=== PATIENT | male | born 1930 | race Caucasian/White ===

== ENCOUNTER 2016-06-20 09:13 | Emergency (ER) | payer MEDICARE ==
[~2016-06-20 09:13] MED LIST: ACULAR; AGGRCAP; ALBU83IN; ALLO300T; AMOX500C; ASPI81TA83; ATEN25TA; COSOPT; DRISDOL; INDAPAMIDE; LIDODERM; NEUR300C; NEURONTIN; NITR0.4S; PROV90AE; SIMV80TA; VALS80CA; VICO5TAB; ZANT150T
[2016-06-20] MEDS ORDERED: ONDANSETRON 4MG/2ML VIAL (J2405) As Ordered ONE (09:55)
[2016-06-20] MEDS ORDERED: MORPHINE 2 MG/ML 1ML SYRINGE As Ordered ONE (09:55)
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
--- NOTE | 2016-06-22 12:05 | EDDOCDS ---
Nurse's Notes [facility] Name: Christiano Linares Age: 85 yrs Sex: Male : 1930 Arrival Date: 06/20/2016 Time: 09:13 Bed 17 Private MD: Kody Naylor Diagnosis: Pain in right hip;Trochanteric bursitis, right hip Presentation: 06/20 09:27 Presenting complaint: Patient states: states right lower back pain radiating down right ml6 leg, states chronic pain, denies injury. Adult Sepsis Screening: The patient does not have new or worsening altered mentation. Patient's respiratory rate is less than 22. Systolic blood pressure is greater than 100. Patient has a qSOFA score of 0- Negative Sepsis Screen. Suicide/Homicide risk assessment- the patient denies having any suicidal and/or homicidal ideations and does not present with any other emotional, behavioral or mental health complaints. 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 Transition of care: patient was not received from another setting of care. 09:27 Acuity: HAMLET Level 4 ml6 09:27 Method Of Arrival: Ambulance ml6 Triage Assessment: 09:31 General: Appears in no apparent distress, Behavior is appropriate for age, cooperative. ml6 Pain: Location: right low back and right leg Pain currently is 5 out of 10 on a pain scale. At worst was 10 out of 10 on a pain scale. Pain does not radiate. Quality of pain is described as aching, Pain began 2-3 days ago Is continuous Alleviated by nothing. Aggravated by increased activity. The patient is triaged at the bedside. See Assessment in Nurses Notes section of ED record. Neurological: No deficits noted. Level of Consciousness is awake, alert, Oriented to person, place, time. Cardiovascular: No deficits noted. Capillary refill < 3 seconds is brisk in bilateral fingers toes Heart tones S1 S2 present Edema is absent. Pulses are all present. Respiratory: No deficits noted. GI: No deficits noted. Musculoskeletal: Circulation, motion, and sensation intact Capillary refill < 3 seconds is brisk in bilateral fingers toes Range of motion intact in all extremities. No deformity noted Swelling absent Signs and Symptoms of Compartment Syndrome: no signs of compartment syndrome. Historical: - Allergies: capatral; Ibuprofen (Hives); - Home Meds: 1. atenolol 25 mg oral tab 1 tab once daily (Last dose: 06/20/2016 08:00) 2. gabapentin 600 mg Oral tab 3 times per day (Last dose: 06/20/2016 06:00) 3. hydrocodone-acetaminophen 7.5-325 mg Oral tab every 6 hours (Last dose: 06/20/2016 06:00) 4. indapamide 2.5 mg Oral tab once daily (Last dose: 06/20/2016 06:00) 5. allopurinol 300 mg Oral tab 1 tab once daily (Last dose: 06/20/2016 06:00) 6. ketorolac 0.4 % ophthalmic drop 1 drop 4 times per day (Last dose: 06/20/2016 06:00) 7. dorzolamide 2 % ophthalmic drop 1 drop 3 times per day (Last dose: 06/20/2016 07:00) - PMHx: CVA; Hypercholesterolemia; Hypertension; OK; - PSHx: AAA Repair; Right hip ORIF; CABG; - Social history: Smoking status: Patient states former smoker of tobacco. Patient uses alcohol on a daily basis. No barriers to communication noted, Speaks appropriately for age. - Family history: Not pertinent. - : The pt / caregiver states he / she is not on anticoagulants. Home medication list is obtained from the patient, Unable to Verify Home Med List with the patient / caregiver. - Exposure Risk Screening:: None identified. Screenin:02 Screening information is obtained from the patient. Fall risk: No risks identified. ml6 Assistance ADL's: requires no assistance with activities of daily living. Abuse/DV Screen: The patient / caregiver reports he/she is: not in a situation that causes fear, pain or injury. Nutritional screening: No deficits noted. Advance Directives: Currently, there is no health care proxy. home support is adequate. Assessment: 09:27 General: see triage assessment. ml6 10:30 Reassessment: Patient denies pain at this time. Patient states feeling better. Patient ml6 states symptoms have improved. Patient states symptoms have not improved. 11:01 General: Appears in no apparent distress, comfortable, Behavior is appropriate for age, ml6 cooperative. Pain: Location: right leg and back and right low back Pain currently is 2 out of 10 on a pain scale. Pain does not radiate. Quality of pain is described as aching, Pain began years ago. Is continuous Alleviated by nothing. Aggravated by increased activity. Neurological: No deficits noted. Cardiovascular: No deficits noted. Capillary refill < 3 seconds is brisk in bilateral fingers toes Heart tones S1 S2 present Edema is absent. Pulses are all present. Musculoskeletal: Circulation, motion, and sensation intact Capillary refill < 3 seconds is brisk in bilateral fingers toes Range of motion intact in all extremities. No deformity noted Swelling absent Signs and Symptoms of Compartment Syndrome: no signs of compartment syndrome. Vital Signs: 09:28 BP 150 / 78; Pulse 63; Resp 18; Temp 98.7(TE); Pulse Ox 96% on R/A; Weight 99.79 kg ct3 (R); Height 5 ft. 7 in. (170.18 cm) (R); 10:17 Pain 0/10; ml6 10:31 BP 145 / 62; Pulse 54; Resp 18; Temp 96.3(O); Pulse Ox 91% on R/A; Pain 0/10; dem1 09:28 Body Mass Index 34.46 (99.79 kg, 170.18 cm) ct3 Vitals: 09:28 Log In Time N/A - ambulance arrival. ct3 ED Course: 09:15 Patient visited by Bailey Acosta, Transit Mixer Operator. deg 09:15 Kody Naylor MD is Private Physician. deg 09:15 Patient moved to Waiting deg 09:15 Patient moved to 17 deg 09:16 Kaur Hoang MD is Attending Physician. sd1 09:27 Kaur Hoang MD is Attending Physician. sd1 09:27 Patient visited by Kaur Hoang MD. sd1 09:28 Patient visited by Isabel Kenny PCA. ct3 09:28 Triage Initiated ml6 10:10 Dale Bell PA is PHCP. btw 10:10 Kaur Hoang MD is Attending Physician. btw 10:18 [facility]. btw 10:31 Patient visited by Dianne Ghosh. dem1 10:53 [facility] Payment Agreement was scanned into [employer] and attached to record. jp5 11:02 The patient / caregiver is instructed regarding the plan of care and ED course. ml6 11:02 No IV's were initiated during this patient's visit. No procedures done that require ml6 assistance. 14:34 T-Sheet-- Draft Copy was scanned into [employer] and attached to record. 14:34 PCR was scanned into [employer] and attached to record. gb 06/21 13:13 PCR was scanned into [employer] and attached to record. gb Administered Medications: 06/20 10:02 Drug: morphine 2 mg [morphine 2 mg/mL intravenous cartridge (1 mL)] Route: IVP; Site: ml6 left antecubital; 10:17 Follow up: Pain 0/10 Adult; see v/s ml6 10:02 Drug: Ondansetron 4 mg [ondansetron HCl 2 mg/mL intravenous solution (2 mL)] Route: ml6 IVP; Site: left antecubital; Intake: Order Results: There are currently no results for this order. Outcome: 10:19 Discharge ordered by Provider. btw 11:02 Discharge Assessment: patient administered narcotics - no. The following High Risk ml6 Discharge criteria are identified: None. Discharged to home ambulatory, with family. Condition: improved. Discharge instructions given to patient, Instructed on discharge instructions, follow up and referral plans. medication usage, Demonstrated understanding of instructions, medications, Pt was receptive of discharge instructions/ teaching. Prescriptions given X 1. No special radiology studies were completed. Property :Personal belongings accompany Pt. 11:03 Patient left the ED. ml6 Signatures: Kaur Hoang MD MD sd1 Bailey Acosta, Transit Mixer Operator Unit deg Mary Jo Riley, Reg Reg gb Daron Jones RN RN ml6 Dale Bell PA PA btw Isabel Kenny, PARTS PICKER PARTS PICKER ct3 Dianne Ghosh1 Isabel Vo jp5 Corrections: (The following items were deleted from the chart) 09:32 09:27 Presenting complaint: Patient states: states right lower back pain radiating down ml6 right leg, states chronic pain ml6 Chart Complete MTDD
== END 2016-06-20 11:03 | disposition home or self-care (01) ==
LOC: M ED 09:13
DX: M25.551 Pain in right hip (principal); I10 Essential (primary) hypertension; E78.00 Pure hypercholesterolemia, unspecified; I25.2 Old myocardial infarction; Z86.73 Personal history of transient ischemic attack (TIA), and cerebral infarction without residual deficits; Z95.1 Presence of aortocoronary bypass graft; Z79.899 Other long term (current) drug therapy; Z88.8 Allergy status to other drugs, medicaments and biological substances; Z88.6 Allergy status to analgesic agent
CPT/HCPCS: 96374; 96375; 99283; J2405

== ENCOUNTER → 2016-06-25 | Outpatient (CLI) | payer MEDICARE ==
--- NOTE | 2016-06-25 16:29 | REP ---
RIGHT HIP, COMPLETE: 06/25/2016. Comparison: 05/25/2013 AP pelvis. Clinical history: Hip pain, degenerative disease. There are vascular calcifications about the common femoral artery. Three lag screws in the femoral head from prior ORIF of the femoral neck fracture. These screw threads do not extend beyond the articular surface of either view. The contour of the femoral head is unchanged from that previous study. There is some progression of degenerative change with larger rim osteophyte at the acetabular roof but no joint space narrowing. No new or acute fracture. Pubic rami and symphysis pubis, unchanged. Heavy vascular calcification of the iliac and femoral arteries visible. Impression: 1. Status post ORIF right hip and prior vascular surgery involving the femoral vessels. No acute fracture, hardware defect of those three femoral screws nor other acute finding. Some progressive degenerative change at the acetabular roof. Rim osteophytes there and femoral head larger. Signed by Tomy Dunne MD 06/25/2016 06:01 P
--- NOTE | 2016-06-25 16:30 | REP ---
RIGHT KNEE SERIES, COMPLETE: 06/25/2016: No comparison study. Clinical history: Knee pain, arthritis. Findings: Five views are provided. Heavy vascular calcifications in the femoral, popliteal arteries and branches thereof in the calf. There are clips in the medial aspect of the lower thigh and upper calf from prior vein graft harvest. There is no narrowing of the medial or lateral compartments on the frontal and oblique views spurs in the tibial spines noted. There is no evidence of osteochondral defect or loose body in the medial or lateral compartment. Patellofemoral joint shows slight narrowing of the lateral patellofemoral compartment but no subluxation or dislocation. No definite effusion. Impression: 1. 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 2. No narrowing of the medial or lateral compartments but with slight narrowing of the lateral patellofemoral joint space. 3. Heavy vascular calcifications of the femoral artery through the trifurcation vessels in the upper calf. Signed by Tomy Dunne MD 06/25/2016 06:02 P
== END ==
LOC: M ADAMS 15:12
PROVIDERS: ATTEND Family Medicine
DX: M24.651 Ankylosis, right hip (principal); M17.11 Unilateral primary osteoarthritis, right knee; I70.291 Other atherosclerosis of native arteries of extremities, right leg; Z98.890 Other specified postprocedural states

== ENCOUNTER → 2016-07-10 | Outpatient (CLI) | payer MEDICARE ==
--- NOTE | 2016-07-18 00:31 | ECWPNPC ---
PATIENT NAME: OPAL DANIEL : 1930 GENDER: MALE VISIT DATE: 07/10/2016 DISCHARGE DATE: 07/10/161619 VISIT LOCKED DATE TIME: PHYSICIAN: SHAY VALENZUELA PHYSICIAN PAGER NO: [phone] RESOURCE: SHAY VALENZUELA REASON FOR APPOINTMENT 1. SPINAL STENOSIS HISTORY OF PRESENT ILLNESS NEW PATIENT CONSULT: 85 Y/O MALE WITH LONG HX OF LOW BACK PAIN.HAD ER EVALUATION DUE TO SEVERE RIGHT LEG PAIN ONE WEEK AGO.STARTED ON ORAL STEROIDS ON 06-20-16 AT ER.PAIN HAS GOTTEN BETTER.RATING PAIN VAS 7/10.DESCRIBES PAIN CONSTANT BURNING AND SHARP PAIN.PAIN IS AGGREVATED BY PUTTING WEIGHT ON RIGHT LEG OR PROLONGED SITTING. RELIEVED SOMEWHAT WITH MEDICATION.DENIES BOWEL OR BLADDER INCONTINENCE.DENIES RECENT FEVER OR WEIGHT LOSS. WHEN DID YOUR PAIN FIRST START? . BRIEFLY DESCRIBE HOW YOUR PAIN STARTED? . HOW DOES YOUR PAIN CHANGE WITH TIME? . DOES YOUR PAIN AWAKEN YOU FROM SLEEP? . HOW MANY HOURS OF SLEEP DO YOU NORMALLY GET? . ANY DIAGNOSTIC TESTING? . FACILITY WHERE TESTS WERE DONE? ____. PAIN TREATMENT TREATMENT YES CANCER HAVE YOU EVER HAD ANY TYPE OF CANCER?NO NO. PAIN SCREENING: PATIENT HAS A COMPLAINT OF ACUTE OR CHRONIC PAIN YES FALL RISK SCREENING: SCREENING :NO FALLS IN THE PAST YEAR ARAMBULA INVENTORY: QUESTIONNAIRE ASSESSEDTBD SCORE VALUE CALCULATED TBD CURRENT MEDICATIONS TAKING NITROSTAT 0.4 MG TABLET SUBLINGUAL 1 TABLET UNDER THE TONGUE SUBLINGUAL NEEDED FOR CHEST PAIN TAKING ASPIR-81 81 MG TABLET DELAYED RELEASE 1 TABLET ORALLY ONCE A DAY TAKING ATENOLOL 25 MG TABLET 1 TABLET ORALLY TWICE A DAY TAKING ALLOPURINOL 300 MG TABLET 1 TABLET ORALLY ONCE A DAY TAKING ATORVASTATIN CALCIUM 80 MG TABLET 1 TABLET ORALLY ONCE A DAY TAKING GABAPENTIN 600 MG TABLET 2 TABLET ORALLY THREE TIMES A DAY TAKING INDAPAMIDE 2.5 MG TABLET 1 TABLET IN THE MORNING ORALLY ONCE A DAY TAKING CLOPIDOGREL BISULFATE 75 MG TABLET 1 TABLET ORALLY ONCE A DAY TAKING HYDROCODONE-ACETAMINOPHEN 7.5-325 MG TABLET 1 TABLET ORALLY/MDD # 4 EVERY 6 HRS NEEDED TAKING KETOROLAC TROMETHAMINE 0.4 % SOLUTION 1 DROP INTO AFFECTED EYE OPHTHALMIC 3 TIMES A DAY TAKING DORZOLAMIDE HCL 2 % SOLUTION 1 DROP INTO AFFECTED EYE OPHTHALMIC DAILY NOT-TAKING ATROVENT 0.06 % SOLUTION 2 DROPS IN EACH NOSTRIL NEEDED NASALLY TID PRN NOT-TAKING AMBIEN 10 MG TABLET 1/2- 1 TABLET ORALLY AT BEDTIME NEEDED, MDD:1 NOT-TAKING VITAMIN D3 2000 UNIT CAPSULE 1 CAPSULE ORALLY DAILY MEDICATION LIST REVIEWED AND RECONCILED WITH THE PATIENT PAST MEDICAL HISTORY HYPERCHOLESTEROLEMIA 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; REFERRED TO PAIN CLINIC/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/POSTERIOR MT 10/24 WITH SUBSEQUENT CABG X4 AAA--S/P EVAR 2011 AT [facility] HYPERTENSION GOUT 06/30, 11/30, 03/02 IMPAIRED FASTING GLUCOSE OBSTRUCTIVE SLEEP APNEA (DID NOT TOLERATE CPAP) BPH STATUS POST TURP ALLERGIC RHINITIS GYNECOMASTIA WITH BIOPSY 12/30 CVA SEPTEMBER 2008 WITH RIGHT FACIAL WEAKNESS MILD AORTIC STENOSIS ECHO 07/2009 EF 60 - 65%; 02/04: NO CHANGE; 04/09 [facility]-- NO CHANGE ADENOMATOUS COLON POLYPS 2001,2002,2006, 2010 ARF IN [place] 08/04--DUE TO VALSARTAN AND DEHYDRATION NST 02/04--NL PERFUSION, EF 66% VIT D DEFIC, RECURRED 2014 ALLERGIES LYRICA: FELT FUNNY DID NOT WORK VALSARTAN/ARBS: ARF: SIDE EFFECTS CAPOTEN: ANGIOEDEMA: SIDE EFFECTS CIPRO: ANAPHYLAXIS: ALLERGY COLCHICINE: DIARRHEA: SIDE EFFECTS KEFLEX: DIARRHEA, FELT REALLY ILL: SIDE EFFECTS MOTRIN: ANGIOEDEMA: SIDE EFFECTS SURGICAL HISTORY OPEN HEART QUADRUPLE BYPASS 10/2000 RIGHT HIP FRACTURE WITH SCREWS 2008 ABDOMINAL ANEURYSM REPAIRED 2009 CATARACTS IN BOTH EYES FAMILY HISTORY 4 SON(S) , 1 DAUGHTER(S) . 3 SONS HAVE CARDIAC ISSUES. SOCIAL HISTORY GENERAL: PAIN CLINIC PFS, CLERGY, PUBLIC HEALTH REFERRALS PFS REFERRAL NEEDED?NO CLERGY REFERRAL NEEDED?NO PUBLIC HEALTH REFERRAL NEEDED?NO WAS THE PROVIDER NOTIFIED OF ANY PERTINENT INFO?NO PSYCHOLOGICAL HX TREATMENTNO ALCOHOL OR DRUG TREATMENTNO PATIENT: ____. ADVANCED DIRECTIVES HEALTH CARE PROXY?NO POWER OF RIG BUILDER HELPER?NO SCREENING/ASSESSMENT TOOL NUTRITION ASSESSEDYES ARE YOU ON ANY SPECIAL DIET?NO ANY SIGNIFICANT CHANGES RELATED TO EATING, WEIGHT GAIN/LOSS, OR BOWEL HABITS?NO IF YES, IS YOUR PRIMARY CARE PROVIDER AWARE OF THIS?NO SPECIAL NEEDS LEVEL OF CARE? SELF , GLASSES: NO , CONTACTS: NO , HEARING AIDS: NO , DENTURES: NO , WALKER: NO , CANE: NO , WHEELCHAIR: NO , REFERRALS NEEDED: NO . TOBACCO USE ARE YOU A:FORMER SMOKER HOW LONG HAS IT BEEN SINCE YOU LAST SMOKED?> 10 YEARS CAFFEINE CAFFEINE USE?YES HOW OFTEN AND HOW MUCH? 3 CUPS COFFEE/DAY RECREATIONAL DRUG USE DRUG USE?NO PATIENT DENIES ABUSE OR MISSUSED OF ANY MEDICATION. PATIENT DENIES USE OF ANY ILLEGAL SUBSTANCE INCLUDING MARIJUANA OR COCAINE. REVIEW OF SYSTEMS CONSTITUTIONAL: ANY CHANGE IN YOUR MEDICAL CONDITION? NO . RECENT ILLNESS DENIES . CHILLS NO . FEVER NO . WEIGHT LOSS DENIES . INFECTION: DO YOU HAVE NEW INFECTIONS? NO . DO YOU HAVE HISTORY OF MRSA? NO . MUSCULOSKELETAL: ANY NEW PATTERNS OF PAIN OR NUMBNESS? NO . SYTEMIC LUPUS NO . GASTROENTEROLOGY: ANY NEW CHANGE IN BOWEL CONTROL? NO . BARRETTS ESOPHAGUS NO . CIRRHOSIS NO . HEPATITIS NO . LIVER FAILURE NO . ACID REFLUX NO . UNEXPLAINED WEIGHT LOSS NO . GENITOURINARY: ANY NEW CHANGE IN BLADDER CONTROL? NO . IS THERE A CHANCE YOU COULD BE ? NO . HEMATOLOGY/LYMPH: DO YOU TAKE ANY BLOOD THINNERS? (FOR EXAMPLE- COUMADIN, PLAVIX, AGGRENOX, PLATEL, PRADAXA, OR XARELTO) YES, PLAVIX . WHEN WAS YOUR LAST DOSE? DATE: 07/10/16 TIME:0900 . LOW PLATELET COUNT NO . SICKLE CELL DISEASE NO . VON WILLIEBRANDS NO . FACTOR V LEIDEN NO . THALLASEMIA NO . ANEMIA NO . EASY BRUISING NO . NEUROLOGY: HAVE YOU FALLEN IN THE PAST 6 MONTHS? NO . ANY NEW EXTREMITY NUMBNESS OR WEAKNESS? NO . HEAD INJURY NO . DEMENTIA NO . CEREBRAL PALSY NO . MULTIPLE SCLEROSIS NO . DIZZINESS NO . HEADACHE NO . STROKES NO . VERTIGO NO . CARDIOLOGY: DO YOU HAVE A PACEMAKER OR DEFIBRILLATOR? NO . ANGINA NO . HEART ATTACK YES . HEART SURGERY YES, BYPASS GRAFTS . CONGESTIVE HEART FAILURE/FLUID OVERLOAD YES . CHEST PAIN NO, DENIES . HIGH BLOOD PRESSURE ON MEDICATION(S) . IRREGULAR HEART BEAT NO . SHORTNESS OF BREATH DENIES . RESPIRATORY: HAVE YOU BEEN SICK IN THE PAST WEEK? NO . FEVER NO . FLU LIKE SYMPTOMS? NO . CPAP NO . BYPAP NO . ASTHMA NO . EMPHYSEMA NO . CHRONIC LUNG DISEASES NO . SHORTNESS OF BREATH ON EXERTION NO . DO YOU USE ANY TYPE OF TOBACCO (SMOKE, SMOKELESS, CHEW)? NO . COUGH NO, DENIES . SHORTNESS OF BREATH DENIES . SNORING NO . INTEGUMENTARY: DO YOU HAVE ANY RASHES OR OPEN SORES? NO . ALLERGIC/IMMUNO: ARE YOU ALLERGIC TO SHELLFISH OR IV DYE? NO . ANY NEW ALLERGIES? NO . PSYCHIATRIC: DO YOU HAVE THOUGHTS OF HURTING YOURSELF OR SOMEONE ELSE? NO . ARE YOU ABUSED, NEGLECTED, OR IN AN UNSAFE ENVIRONMENT? NO . ENDOCRINOLOGY: ARE YOU DIABETIC? NO . THYROID DISORDER NO . OTHER: DO YOU NEED ANY PRESCRIPTIONS? NO . IF YES, PLEASE LIST: ____ . ANY NEW PROBLEMS WITH YOUR MEDICATIONS? NO . WHEN DID YOU LAST EAT? ____ . WHEN DID YOU LAST DRINK? ____ . WHAT DID YOU LAST DRINK? ____ . NAME OF PERSON DRIVING YOU HOME? ____ . DO YOU HAVE ANY OTHER QUESTIONS OR CONCERNS NO . REVIEWED BY: PROVIDER: SHAY STEWARD . VITAL SIGNS WT 215 LBS, HT 67 IN, BMI 33.67 INDEX, BP 159/75 MM HG, HR 70 /MIN, RR 16 /MIN, TEMP 97.6 F, OXYGEN SAT % 93%, NA INITIALS SC 15:19, REVIEWED BY: CS. EXAMINATION GENERAL EXAMINATION: LUNGS:LUNG SOUNDS ARE CLEAR. HEART:HEART RATE REGULAR. MUSCULOSKELETAL:*, MUSCLE STRENGTH TESTING 5/5 LEFT,3/5 RIGHT LOWER EXTREMITIES., PALPATION: POSITIVE FOR PAIN OVER L/S SPINE. POSITIVE FOR PAIN OVER L/S PARASPINALS.SPECIFIC POINT TENDERNESS OVER RIGHT SIJ.. DIAGNOSTIC:MRI L/S [id number] REVIEWED.. ASSESSMENTS SACROILIAC JOINT PAIN - M53.3 (PRIMARY) TREATMENT SACROILIAC JOINT PAIN INJECTION ANESTHETIC SACROILIAC JOINTSHAY VALENZUELA 07/10/2016 4:11:24 PM > RIGHT SIJ PROCEDURE CODES FA211 ESTABILISHED PATIENT THE [facility] FACILITY CHARGE G8730 PAIN ASSESS POS TOOL F/U PLAN DOC G8427 DOC MEDS VERIFIED W/PT OR RE DISPOSITION & COMMUNICATION FOLLOW UP 2WK POST PROCEDURE (REASON: SEND STOP PLAVIX FORM TO DR GALVAN) ELECTRONICALLY SIGNED BY BIN SHARP ON 07/17/2016 AT 07:31 PM EST DISCLAIMER : THIS IS A VISIT SUMMARY EXTRACTED FROM THE [employer] Video CHART. IT IS NOT A COPY OF THE [employer] PROGRESS NOTE. BERTRAND
== END ==
LOC: M PAIN 15:20
PROVIDERS: ATTEND Nurse Practitioner Family
DX: G89.29 Other chronic pain (principal); M53.3 Sacrococcygeal disorders, not elsewhere classified; I12.9 Hypertensive chronic kidney disease with stage 1 through stage 4 chronic kidney disease, or unspecified chronic kidney disease; N18.3 Chronic kidney disease, stage 3 (moderate); D63.1 Anemia in chronic kidney disease; E78.2 Mixed hyperlipidemia; I25.10 Atherosclerotic heart disease of native coronary artery without angina pectoris; I25.2 Old myocardial infarction; I35.0 Nonrheumatic aortic (valve) stenosis; E55.9 Vitamin D deficiency, unspecified; M10.9 Gout, unspecified; G47.33 Obstructive sleep apnea (adult) (pediatric); M51.37 Other intervertebral disc degeneration, lumbosacral region; M48.07 Spinal stenosis, lumbosacral region; M19.90 Unspecified osteoarthritis, unspecified site; M24.651 Ankylosis, right hip; Z88.8 Allergy status to other drugs, medicaments and biological substances; Z88.6 Allergy status to analgesic agent; Z79.01 Long term (current) use of anticoagulants; Z79.82 Long term (current) use of aspirin; Z79.891 Long term (current) use of opiate analgesic; Z79.899 Other long term (current) drug therapy; Z87.891 Personal history of nicotine dependence; Z95.1 Presence of aortocoronary bypass graft; Z95.828 Presence of other vascular implants and grafts

== ENCOUNTER → 2016-08-13 | Outpatient (CLI) | payer MEDICARE ==
[~2016-08-13] MED LIST changes: +BUPIVACAINE HCL 0.25% 30 ML VIAL As Ordered ONE; +DORZ2OPD; +GABA600T PO; +ISOVUE-M 300 61% 15ML VIAL (Q9967) As Ordered ONE; +KETOROLAC OU; +LIDOCAINE 1% SDV INJ 30 ML VIAL As Ordered ONE; +TRIAMCINOLONE ACETONIDE SUSP 40 MG/ML VIAL (J3301) As Ordered ONE
--- NOTE | 2016-08-13 17:06 | REP ---
FLUOROSCOPIC GUIDANCE: The images were reviewed with Dr. De La Paz. The patient has a history of low back pain. The portable C-Arm was provided in the OR for Dr. Clancy for fluoroscopic guidance. One intraoperative fluoroscopic spot film was obtained for needle placement verification for right sacroiliac joint injection. The film is on the PACs system and is available for review. 15 seconds of fluoroscopy time was utilized for this procedure. Reviewed by SIMONE Velez 08/14/2016 04:17 PEdited and Signed by Jimmie De La Paz MD 08/15/2016 12:25 P
--- NOTE | 2016-08-15 00:11 | ECWPNPC ---
PATIENT NAME: OPAL DANIEL : 1930 GENDER: MALE VISIT DATE: 08/13/2016 DISCHARGE DATE: 08/13/16 1350 VISIT LOCKED DATE TIME: PHYSICIAN: ELISA MARTINEZ PHYSICIAN PAGER NO: [phone] RESOURCE: ELISA MARTINEZ REASON FOR APPOINTMENT 1. SIJ (RIGHT) HISTORY OF PRESENT ILLNESS HISTORY OF PRESENT ILLNESS: PAIN THE PATIENT DESCRIBES THE PAIN... FALL RISK SCREENING: SCREENING :NO FALLS IN THE PAST YEAR CURRENT MEDICATIONS TAKING NITROSTAT 0.4 MG TABLET SUBLINGUAL 1 TABLET UNDER THE TONGUE SUBLINGUAL NEEDED FOR CHEST PAIN, NOTES: > 4 YEARS AGO TAKING ASPIR-81 81 MG TABLET DELAYED RELEASE 1 TABLET ORALLY ONCE A DAY, NOTES: 06/06/16 08 TAKING ATENOLOL 25 MG TABLET 1 TABLET ORALLY TWICE A DAY, NOTES: 08/13/16 08 TAKING ALLOPURINOL 300 MG TABLET 1 TABLET ORALLY ONCE A DAY, NOTES: 08/13/16 08 TAKING ATORVASTATIN CALCIUM 80 MG TABLET 1 TABLET ORALLY ONCE A DAY, NOTES: 08/12/16 2200 TAKING GABAPENTIN 600 MG TABLET 2 TABLET ORALLY THREE TIMES A DAY, NOTES: 08/13/16 08 TAKING INDAPAMIDE 2.5 MG TABLET 1 TABLET IN THE MORNING ORALLY ONCE A DAY, NOTES: 08/13/16 08 TAKING CLOPIDOGREL BISULFATE 75 MG TABLET 1 TABLET ORALLY ONCE A DAY, NOTES: 08/04/16 08 TAKING KETOROLAC TROMETHAMINE 0.4 % SOLUTION 1 DROP INTO AFFECTED EYE OPHTHALMIC 3 TIMES A DAY, NOTES: 08/13/16 08 TAKING DORZOLAMIDE HCL 2 % SOLUTION 1 DROP INTO AFFECTED EYE OPHTHALMIC DAILY, NOTES: 08/13/16 08 TAKING HYDROCODONE-ACETAMINOPHEN 7.5-325 MG TABLET 1 TABLET ORALLY/MDD # 4 EVERY 6 HRS NEEDED, NOTES: 08/13/16 1000 NOT-TAKING ATROVENT 0.06 % SOLUTION 2 DROPS IN EACH NOSTRIL NEEDED NASALLY TID PRN NOT-TAKING AMBIEN 10 MG TABLET 1/2- 1 TABLET ORALLY AT BEDTIME NEEDED, MDD:1 NOT-TAKING VITAMIN D3 2000 UNIT CAPSULE 1 CAPSULE ORALLY DAILY MEDICATION LIST REVIEWED AND RECONCILED WITH THE PATIENT PAST MEDICAL HISTORY HYPERCHOLESTEROLEMIA 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 HYPERTENSION GOUT 06/30, 11/30, 03/02 IMPAIRED FASTING GLUCOSE OBSTRUCTIVE SLEEP APNEA (DID NOT TOLERATE CPAP) BPH STATUS POST TURP ALLERGIC RHINITIS GYNECOMASTIA WITH BIOPSY 12/30 CVA SEPTEMBER 2008 WITH RIGHT FACIAL WEAKNESS MILD AORTIC STENOSIS ECHO 07/2009 EF 60 - 65%; 02/04: NO CHANGE; 04/09 [facility]-- NO CHANGE ADENOMATOUS COLON POLYPS 2001,2002,2006, 2010 ARF IN [place] 08/04--DUE TO VALSARTAN AND DEHYDRATION NST 02/04--NL PERFUSION, EF 66% VIT D DEFIC, RECURRED 2014 ALLERGIES LYRICA: FELT FUNNY DID NOT WORK VALSARTAN/ARBS: ARF: SIDE EFFECTS CAPOTEN: ANGIOEDEMA: SIDE EFFECTS CIPRO: ANAPHYLAXIS: ALLERGY COLCHICINE: DIARRHEA: SIDE EFFECTS KEFLEX: DIARRHEA, FELT REALLY ILL: SIDE EFFECTS MOTRIN: ANGIOEDEMA: SIDE EFFECTS SOCIAL HISTORY GENERAL: TOBACCO USE ARE YOU A:NONSMOKER LEARNING BARRIERS / SPECIAL NEEDS ORIENTED TO PLAN OF CARE: PATIENT, PAIN MANAGEMENT PATIENT, ORIENTED TO PLAN OF CARE: PATIENT, PAIN MANAGEMENT PATIENT. NEW PATIENT PAIN DIARY TODAY'S VISITNOTES FROM 0-10, WHAT LEVEL IS YOUR PAIN TODAY?0 PAIN CLINIC PFS, CLERGY, PUBLIC HEALTH REFERRALS PFS REFERRAL NEEDED?NO CLERGY REFERRAL NEEDED?NO PUBLIC HEALTH REFERRAL NEEDED?NO WAS THE PROVIDER NOTIFIED OF ANY PERTINENT INFO?NO PFS REFERRAL NEEDED?NO CLERGY REFERRAL NEEDED?NO PUBLIC HEALTH REFERRAL NEEDED?NO WAS THE PROVIDER NOTIFIED OF ANY PERTINENT INFO?NO REVIEW OF SYSTEMS CONSTITUTIONAL: ANY CHANGE IN YOUR MEDICAL CONDITION? NO . CHILLS NO . FEVER NO . INFECTION: DO YOU HAVE NEW INFECTIONS? NO . DO YOU HAVE HISTORY OF MRSA? NO . MUSCULOSKELETAL: ANY NEW PATTERNS OF PAIN OR NUMBNESS? NO . GASTROENTEROLOGY: ANY NEW CHANGE IN BOWEL CONTROL? NO . GENITOURINARY: ANY NEW CHANGE IN BLADDER CONTROL? NO . IS THERE A CHANCE YOU COULD BE ? NO . HEMATOLOGY/LYMPH: DO YOU TAKE ANY BLOOD THINNERS? (FOR EXAMPLE- COUMADIN, PLAVIX, AGGRENOX, PLATEL, PRADAXA, OR XARELTO) YES, PLAVIX . WHEN WAS YOUR LAST DOSE? DATE: TIME: 08/04/16 AM . NEUROLOGY: HAVE YOU FALLEN IN THE PAST 6 MONTHS? NO . ANY NEW EXTREMITY NUMBNESS OR WEAKNESS? NO . CARDIOLOGY: DO YOU HAVE A PACEMAKER OR DEFIBRILLATOR? NO . RESPIRATORY: HAVE YOU BEEN SICK IN THE PAST WEEK? NO . FEVER NO . FLU LIKE SYMPTOMS? NO . COUGH NO . INTEGUMENTARY: DO YOU HAVE ANY RASHES OR OPEN SORES? NO . ALLERGIC/IMMUNO: ARE YOU ALLERGIC TO SHELLFISH OR IV DYE? NO . ANY NEW ALLERGIES? NO . PSYCHIATRIC: DO YOU HAVE THOUGHTS OF HURTING YOURSELF OR SOMEONE ELSE? NO . ARE YOU ABUSED, NEGLECTED, OR IN AN UNSAFE ENVIRONMENT? NO . ENDOCRINOLOGY: ARE YOU DIABETIC? NO . OTHER: DO YOU NEED ANY PRESCRIPTIONS? NO . IF YES, PLEASE LIST: ____ . ANY NEW PROBLEMS WITH YOUR MEDICATIONS? NO . WHEN DID YOU LAST EAT? 08-13-16 0630 . WHEN DID YOU LAST DRINK? 08-13-16 1000 . WHAT DID YOU LAST DRINK? ORANGE JUICE . NAME OF PERSON DRIVING YOU HOME? KAY DANIEL . DO YOU HAVE ANY OTHER QUESTIONS OR CONCERNS NO . REVIEWED BY: PROVIDER: . VITAL SIGNS WT 215 LBS, HT 67 IN, BMI 33.67 INDEX, BP 170/80 MM HG, HR 68 /MIN, RR 18 /MIN, TEMP 97.2 F, OXYGEN SAT % 93, SAFE IN ENV? (Y/N) YES, NA INITIALS HS, REVIEWED BY: JUSTIN. ASSESSMENTS SACROILIITIS, NOT ELSEWHERE CLASSIFIED - M46.1 (PRIMARY) PROCEDURES PN SI PRE PROCEDURE DIAGNOSIS SACROILIITIS, SACROILIAC JOINT DYSFUNCTION POST PROCEDURE DIAGNOSIS SACROILIITIS, SACROILIAC JOINT DYSFUNCTION PROCEDURE RIGHT SACROILIAC JOINT BLOCK SURGEON DR. ELISA MARTINEZ ACCOUNTING REPRESENTATIVE NONE ANESTHESIA LOCAL PRE PROCEDURE NOTE PATIENT WITH HISTORY OF CHRONIC LOW BACK PAIN. I EVALUATED THE PATIENT AND REVIEWED THE CHART. I WENT OVER THE RISKS, ALTERNATIVES, AND BENEFITS ASSOCIATED WITH THIS PROCEDURE. THE PATIENT WOULD LIKE TO PROCEED AND GAVE CONSENT TO PERFORM THE PROCEDURE. THE PATIENT DENIES UNEXPLAINABLE WEIGHT LOSS, FEVER, CHILLS, OR NEW CHANGES IN URINARY OR BOWEL CONTROL DESCRIPTION OF PROCEDURE THE PATIENT WAS BROUGHT TO THE PROCEDURE ROOM AND PLACED IN THE PRONE POSITION. THE LUMBOSACRAL AREA WAS CLEANED WITH CHLORAPREP SOLUTION AND DRAPED ASEPTICALLY. THE PROCEDURE WAS DONE UNDER STERILE CONDITIONS. I CHECKED LATERALITY AND THE LEVEL WHERE THE PROCEDURE WAS GOING TO BE PERFORMED WITH THE PATIENT AND THE SUPPORTING STAFF AT THE MOMENT OF THE TIME OUT IN THE PROCEDURE ROOM. UNDER FLUOROSCOPIC GUIDANCE, TARGET POINT WAS SELECTED AT THE LOWER BORDER OF THE RIGHT SACROILIAC JOINT. TARGET POINT WAS SELECTED AFTER MEDIAL ROTATION AND TILT OF THE MAGNIFIER OF THE C-ARM. LIDOCAINE WAS USED TO NUMB THE SKIN AND SUBCUTANEOUS TISSUE BELOW IT. A SPINAL NEEDLE, 22-GAUGE, WAS ADVANCED UNDER FLUOROSCOPIC GUIDANCE AND FOLLOWING PATIENT FEEDBACK UNTIL THE TARGET AREA WAS TOUCHED. THE POSITION OF THE NEEDLE WAS VERIFIED WITH AP AND LATERAL VIEWS. AFTER PROPER POSITION OF THE NEEDLE WAS ACHIEVED, ISOVUE M DYE 30%, 0.25 ML, WAS INJECTED SHOWING SPREAD OF THE DYE. THEN, A SOLUTION OF 20 MG OF KENALOG WAS INJECTED IN RIGHT JOINT WITH 3 ML OF BUPIVACAINE 0.125%. THERE WAS NO EVIDENCE OF BLOOD, PARESTHESIA OR CEREBROSPINAL FLUID DURING THE PROCEDURE. THE PATIENT WAS SENT TO THE RECOVERY ROOM. THE PATIENT WAS MOVING THE EXTREMITIES AND DOING WELL. THERE WAS NO COMPLICATION DURING THE PROCEDURE. FLUOROSCOPY TIME WAS 15 SECONDS POST PROCEDURE NOTE THE PATIENT WILL BE SEEN IN A FOLLOW UP IN THE NEXT FEW WEEKS. INSTRUCTIONS WERE GIVEN, QUESTIONS WERE ANSWERED, AND THE PATIENT EXPRESSED UNDERSTANDING AND AGREED WITH THE PLAN. I, URI MEHTA, DOCUMENTED THE ABOVE INFORMATION ACTING A SCRIBE FOR DR. MARTINEZ. I HAVE REVIEWED THE ABOVE DOCUMENT, WRITTEN BY URI ARANGO AND I VERIFY THAT IT IS ACCURATE. DIAGNOSTIC IM[facility] FLUORO GUIDANCE (PAIN)[id number] PROCEDURE CODES 47268 INJECT SACROILIAC JOINT 6045F RADXPS IN END [id number] PXD DISPOSITION & COMMUNICATION FOLLOW UP 3 WEEKS ELECTRONICALLY SIGNED BY ELISA MARTINEZ MD ON 08/14/2016 AT 08:37 PM EDT DISCLAIMER : THIS IS A VISIT SUMMARY EXTRACTED FROM THE [facility] CHART. IT IS NOT A COPY OF THE [facility] PROGRESS NOTE. MTDD
== END ==
LOC: M PAIN 11:40
PROVIDERS: ATTEND Anesthesiology
DX: G89.29 Other chronic pain (principal); M46.1 Sacroiliitis, not elsewhere classified; M54.5 Low back pain; Z79.82 Long term (current) use of aspirin; Z79.891 Long term (current) use of opiate analgesic; Z79.899 Other long term (current) drug therapy; I11.9 Hypertensive heart disease without heart failure; I25.10 Atherosclerotic heart disease of native coronary artery without angina pectoris; E78.2 Mixed hyperlipidemia; E55.9 Vitamin D deficiency, unspecified; M79.2 Neuralgia and neuritis, unspecified; Z95.828 Presence of other vascular implants and grafts; M53.3 Sacrococcygeal disorders, not elsewhere classified
CPT/HCPCS: G0260; J3301; Q9967

== ENCOUNTER 2016-08-21 17:34 | Emergency (ER) | payer MEDICARE ==
[~2016-08-21] VITALS: Ht 170.2 cm; Wt 97.5 kg
[~2016-08-21 17:34] MED LIST changes: -BUPIVACAINE HCL 0.25% 30 ML VIAL As Ordered ONE; -DORZ2OPD; -GABA600T PO; -ISOVUE-M 300 61% 15ML VIAL (Q9967) As Ordered ONE; -KETOROLAC OU; -LIDOCAINE 1% SDV INJ 30 ML VIAL As Ordered ONE; -TRIAMCINOLONE ACETONIDE SUSP 40 MG/ML VIAL (J3301) As Ordered ONE
[2016-08-21] MEDS ORDERED: GABA600T PO (18:29)
[2016-08-21] MEDS ORDERED: KETOROLAC OU (18:29)
[2016-08-21] MEDS ORDERED: DORZ2OPD (18:31)
[2016-08-21] MEDS ORDERED: traMADol 50 MG TAB PO ONE (20:00)
--- NOTE | 2016-08-21 20:40 | REPUSA ---
CLINICAL HISTORY: Testicular pain. TECHNIQUE: Realtime sonographic images were obtained in multiple projections. COMMENTS: Both testicles are of normal size and shape and are of heterogeneous echo texture. The right testicle measures 3.3 x 2.3 x 2.53 cm. The right epididymis measures 5.8 cc. The left testicle measures 4.1 x 2.7 x 3.4 cm. The left epididymis measures 13.7 mm The left testicle shows diffusely cystic tissue along the mediastinum testis. No torsion. Bilateral hydroceles. The right RI is 0.3, PSV 2.0 and EDV 1.4 cm/s. The left RI is 0.67, PSV 2.7 and EDV 0.9 cm/s. IMPRESSION: Bilateral heterogeneous echotexture. This may represent prior trauma or infection. Diffuse cystic tissue around left testicle of doubtful clinical significance. Bilateral hydroceles. Thank you for your kind referral of this patient. We appreciate the opportunity to participate in thi s patient's care.
[2016-08-21 20:57] VITALS: BP 146/74
== END 2016-08-21 20:58 | disposition left against medical advice (07) ==
LOC: M ED 20:57
DX: S30.21XA Contusion of penis, initial encounter (principal); W23.1XXA Caught, crushed, jammed, or pinched between stationary objects, initial encounter; Y92.89 Other specified places as the place of occurrence of the external cause; Y93.89 Activity, other specified; Y99.9 Unspecified external cause status

== ENCOUNTER → 2016-08-26 | Outpatient (REF) | payer MEDICARE ==
[~2016-08-26] MED LIST changes: +DORZ2OPD; +GABA600T PO; +KETOROLAC OU
== END ==
LOC: M SFHCPLAZ 15:07
PROVIDERS: ATTEND Physician Assistant
DX: N50.819 Testicular pain, unspecified (principal)

== ENCOUNTER → 2016-08-28 | Outpatient (CLI) | payer MEDICARE ==
--- NOTE | 2016-08-29 00:26 | ECWPNPC ---
PATIENT NAME: OPAL DANIEL : 1930 GENDER: MALE VISIT DATE: 08/28/2016 DISCHARGE DATE: 08/28/16 0000 VISIT LOCKED DATE TIME: PHYSICIAN: SHAY VALENZUELA PHYSICIAN PAGER NO: [phone] RESOURCE: SHAY VALENZUELA REASON FOR APPOINTMENT 1. POST PROCEDURE-SIJ HISTORY OF PRESENT ILLNESS HISTORY OF PRESENT ILLNESS: HERE FOR POST PROCEDURE F/U.HAD RIGHT SIJ 08-13-16.REPORTS TWO DAYS IMPROVEMENT IN PAIN POST PROCEDURE.RATING PAIN VAS 8/10.DESCRIBES PAIN CONSTANT ACHING AND BURNING ACROSS LOW BACK.REPORTS NO IMPROVEMENT WITH CURRENT PAIN MEDICATION TO INCLUDE GABAPENTIN AND HYDROCODONE THAT HE RECIEVES FROM PRIMARY CARE. PAIN THE PATIENT DESCRIBES THE PAIN... FALL RISK SCREENING: SCREENING :NO FALLS IN THE PAST YEAR CURRENT MEDICATIONS TAKING NITROSTAT 0.4 MG TABLET SUBLINGUAL 1 TABLET UNDER THE TONGUE SUBLINGUAL NEEDED FOR CHEST PAIN, NOTES: > 4 YEARS AGO TAKING ASPIR-81 81 MG TABLET DELAYED RELEASE 1 TABLET ORALLY ONCE A DAY, NOTES: 06/06/16 0800 TAKING ATENOLOL 25 MG TABLET 1 TABLET ORALLY TWICE A DAY, NOTES: 08/13/16 0800 TAKING ALLOPURINOL 300 MG TABLET 1 TABLET ORALLY ONCE A DAY, NOTES: 08/13/16 0800 TAKING ATORVASTATIN CALCIUM 80 MG TABLET 1 TABLET ORALLY ONCE A DAY, NOTES: 08/12/16 2200 TAKING INDAPAMIDE 2.5 MG TABLET 1 TABLET IN THE MORNING ORALLY ONCE A DAY, NOTES: 08/13/16 08 TAKING CLOPIDOGREL BISULFATE 75 MG TABLET 1 TABLET ORALLY ONCE A DAY, NOTES: 08/04/16 0800 TAKING KETOROLAC TROMETHAMINE 0.4 % SOLUTION 1 DROP INTO AFFECTED EYE OPHTHALMIC 3 TIMES A DAY, NOTES: 08/13/16 0800 TAKING DORZOLAMIDE HCL 2 % SOLUTION 1 DROP INTO AFFECTED EYE OPHTHALMIC DAILY, NOTES: 08/13/16 0800 TAKING HYDROCODONE-ACETAMINOPHEN 7.5-325 MG TABLET 1 TABLET ORALLY/MDD # 4 EVERY 6 HRS NEEDED, NOTES: 08/13/16 1000 TAKING GABAPENTIN 600 MG TABLET 2 TABLET ORALLY THREE TIMES A DAY, NOTES: 08/13/16 0800 NOT-TAKING ATROVENT 0.06 % SOLUTION 2 DROPS IN EACH NOSTRIL NEEDED NASALLY TID PRN NOT-TAKING AMBIEN 10 MG TABLET 1/2- 1 TABLET ORALLY AT BEDTIME NEEDED, MDD:1 NOT-TAKING VITAMIN D3 2000 UNIT CAPSULE 1 CAPSULE ORALLY DAILY MEDICATION LIST REVIEWED AND RECONCILED WITH THE PATIENT PAST MEDICAL HISTORY HYPERCHOLESTEROLEMIA 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; REFERRED TO PAIN CLINIC/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/POSTERIOR HI 10/24 WITH SUBSEQUENT CABG X4 AAA--S/P EVAR 2011 AT [facility] HYPERTENSION GOUT 06/30, 11/30, 03/02 IMPAIRED FASTING GLUCOSE OBSTRUCTIVE SLEEP APNEA (DID NOT TOLERATE CPAP) BPH STATUS POST TURP ALLERGIC RHINITIS GYNECOMASTIA WITH BIOPSY 12/30 CVA SEPTEMBER 2008 WITH RIGHT FACIAL WEAKNESS MILD AORTIC STENOSIS ECHO 07/2009 EF 60 - 65%; 02/04: NO CHANGE; 04/09 [facility]-- NO CHANGE ADENOMATOUS COLON POLYPS 2001,2002,2006, 2010 ARF IN [place] 08/04--DUE TO VALSARTAN AND DEHYDRATION NST 02/04--NL PERFUSION, EF 66% VIT D DEFIC, RECURRED 2014 ALLERGIES LYRICA: FELT FUNNY DID NOT WORK VALSARTAN/ARBS: ARF: SIDE EFFECTS CAPOTEN: ANGIOEDEMA: SIDE EFFECTS CIPRO: ANAPHYLAXIS: ALLERGY COLCHICINE: DIARRHEA: SIDE EFFECTS KEFLEX: DIARRHEA, FELT REALLY ILL: SIDE EFFECTS MOTRIN: ANGIOEDEMA: SIDE EFFECTS SOCIAL HISTORY GENERAL: PAIN CLINIC PFS, CLERGY, PUBLIC HEALTH REFERRALS CLERGY REFERRAL NEEDED?NO WAS THE PROVIDER NOTIFIED OF ANY PERTINENT INFO?NO PFS REFERRAL NEEDED?NO PUBLIC HEALTH REFERRAL NEEDED?NO PATIENT: ____. REVIEW OF SYSTEMS CONSTITUTIONAL: ANY CHANGE IN YOUR MEDICAL CONDITION? SWOLLEN RIGHT TESTICLE-WORKED UP BY . RECENT ILLNESS DENIES . CHILLS NO . FEVER NO . WEIGHT LOSS DENIES . INFECTION: DO YOU HAVE NEW INFECTIONS? NO . DO YOU HAVE HISTORY OF MRSA? NO . MUSCULOSKELETAL: ANY NEW PATTERNS OF PAIN OR NUMBNESS? NO . GASTROENTEROLOGY: ANY NEW CHANGE IN BOWEL CONTROL? NO . GENITOURINARY: ANY NEW CHANGE IN BLADDER CONTROL? NO . IS THERE A CHANCE YOU COULD BE ? NO . HEMATOLOGY/LYMPH: DO YOU TAKE ANY BLOOD THINNERS? (FOR EXAMPLE- COUMADIN, PLAVIX, AGGRENOX, PLATEL, PRADAXA, OR XARELTO) YES P{LAVIX . WHEN WAS YOUR LAST DOSE? DATE: TIME: . NEUROLOGY: HAVE YOU FALLEN IN THE PAST 6 MONTHS? NO . ANY NEW EXTREMITY NUMBNESS OR WEAKNESS? NO . CARDIOLOGY: DO YOU HAVE A PACEMAKER OR DEFIBRILLATOR? NO . CHEST PAIN DENIES . SHORTNESS OF BREATH DENIES . RESPIRATORY: HAVE YOU BEEN SICK IN THE PAST WEEK? NO . FEVER NO . FLU LIKE SYMPTOMS? NO . COUGH NO, DENIES . SHORTNESS OF BREATH DENIES . INTEGUMENTARY: DO YOU HAVE ANY RASHES OR OPEN SORES? NO . ALLERGIC/IMMUNO: ARE YOU ALLERGIC TO SHELLFISH OR IV DYE? NO . ANY NEW ALLERGIES? NO . PSYCHIATRIC: DO YOU HAVE THOUGHTS OF HURTING YOURSELF OR SOMEONE ELSE? NO . ARE YOU ABUSED, NEGLECTED, OR IN AN UNSAFE ENVIRONMENT? NO . ENDOCRINOLOGY: ARE YOU DIABETIC? NO . OTHER: DO YOU NEED ANY PRESCRIPTIONS? NO . IF YES, PLEASE LIST: ____ . ANY NEW PROBLEMS WITH YOUR MEDICATIONS? NO . WHEN DID YOU LAST EAT? ____ . WHEN DID YOU LAST DRINK? ____ . WHAT DID YOU LAST DRINK? ____ . NAME OF PERSON DRIVING YOU HOME? ____ . DO YOU HAVE ANY OTHER QUESTIONS OR CONCERNS NO . REVIEWED BY: PROVIDER: SHAY STEWARD . VITAL SIGNS WT 214 LBS, HT 67 IN, BMI 33.51 INDEX, BP 144/70 MM HG, HR 63 /MIN, RR 16 /MIN, TEMP 97.9 F, OXYGEN SAT % 94%, NA INITIALS SC 09:08, REVIEWED BY: FRANKF. EXAMINATION GENERAL EXAMINATION: LUNGS:LUNG SOUNDS ARE CLEAR. HEART:HEART RATE REGULAR. MUSCULOSKELETAL:*, MUSCLE STRENGTH TESTING 5/5 BLE., PALPATION: NEGATIVE FOR PAIN OVER L/S SPINE. NEGATIVE FOR PAIN OVER L/S PARASPINALS. DIAGNOSTIC: . ASSESSMENTS LUMBAR FACET ARTHROPATHY - M12.88 (PRIMARY) TREATMENT LUMBAR FACET ARTHROPATHY [facility] MRI SPINE, L.S. WITHOUT [id number] PROCEDURE CODES FA211 ESTABILISHED PATIENT [facility] FACILITY CHARGE G8730 PAIN ASSESS POS TOOL F/U PLAN DOC G8427 DOC MEDS VERIFIED W/PT OR RE DISPOSITION & COMMUNICATION FOLLOW UP 4 WEEKS ELECTRONICALLY SIGNED BY BIN SHARP ON 08/28/2016 AT 01:36 PM EDT DISCLAIMER : THIS IS A VISIT SUMMARY EXTRACTED FROM THE [facility] CHART. IT IS NOT A COPY OF THE [facility] PROGRESS NOTE. MTDD
== END | disposition home or self-care (01) ==
LOC: M PAIN 09:00
PROVIDERS: ATTEND Nurse Practitioner Family
DX: Z09 Encounter for follow-up examination after completed treatment for conditions other than malignant neoplasm (principal); G89.29 Other chronic pain; M12.88 Other specific arthropathies, not elsewhere classified, other specified site; I12.9 Hypertensive chronic kidney disease with stage 1 through stage 4 chronic kidney disease, or unspecified chronic kidney disease; N18.3 Chronic kidney disease, stage 3 (moderate); D63.1 Anemia in chronic kidney disease; Z95.1 Presence of aortocoronary bypass graft; Z86.73 Personal history of transient ischemic attack (TIA), and cerebral infarction without residual deficits; Z79.899 Other long term (current) drug therapy; Z79.82 Long term (current) use of aspirin; Z88.1 Allergy status to other antibiotic agents; Z88.8 Allergy status to other drugs, medicaments and biological substances

== ENCOUNTER → 2016-09-10 | Outpatient (CLI) | payer MEDICARE ==
[2016-09-10 13:20] LABS: MEAN CORPUSCULAR HEMOGLOBIN 30.6 pg (27.0-33.0); MEAN CORPUSCULAR HGB CONC 30.4 g/dl (32.0-36.5); MEAN CORPUSCULAR VOLUME 100.7 fl (80.0-96.0); RED CELL DISTRIBUTION WIDTH 16.2 % (11.5-14.5); WHITE BLOOD COUNT 9.6 K/mm3 (4.0-10.0)
[2016-09-10 14:02] LABS: CALCIUM LEVEL 8.7 MG/DL (8.8-10.2); CREATININE FOR GFR 2.01 MG/DL (0.70-1.30); GLOMERULAR FILTRATION RATE 33.6 (>35); PHOSPHORUS LEVEL 3.2 MG/DL (2.5-4.9); POTASSIUM SERUM 4.9 MEQ/L (3.5-5.1)
== END ==
LOC: M WUC 10:22
PROVIDERS: ATTEND Family Medicine
DX: N18.3 Chronic kidney disease, stage 3 (moderate) (principal)

== ENCOUNTER → 2016-09-13 | Outpatient (REF) | payer MEDICARE ==
[2016-09-13 16:36] LABS: RETIC HEMOGLOBIN CONTENT CHr 30.3 PG (24-36); RETICULOCYTE % ADVIA2120 4.7 % (0.5-1.5)
[2016-09-13 16:58] LABS: FERRITIN 29 NG/ML (26-388); FREE T4 0.97 NG/DL (0.76-1.46); PERCENT SATURATION 11.9 % (19.7-37.4); TOTAL IRON BINDING CAPACITY 335 UG/DL (250-450); TOTAL PROTEIN 6.3 GM/DL (6.4-8.2); URIC ACID 4.7 MG/DL (3.5-7.2)
[2016-09-13 17:04] LABS: VITAMIN B12 LEVEL 326 PG/ML (247-911)
[2016-09-13 17:05] LABS: FOLATE 22.7 NG/ML (>5.4)
[2016-09-16 13:08] LABS: ALBUMIN % 51.3 % (55.8-66.1); GAMMA GLOBULIN % 16.1 % (11.1-18.8)
[2016-09-16 13:09] LABS: ALBUMIN 3.23 GM/DL (3.29-5.55)
== END ==
LOC: M SFHCPLAZ 12:06
PROVIDERS: ATTEND Family Medicine
DX: R53.83 Other fatigue (principal); D64.9 Anemia, unspecified; R63.4 Abnormal weight loss; M10.9 Gout, unspecified

== ENCOUNTER → 2016-10-11 | Outpatient (CLI) | payer MEDICARE ==
--- NOTE | 2016-10-11 15:12 | REP ---
Clinical: Chronic cough and shortness of breath. Technique: PA and lateral views. Comparison: 08/22/2011. Findings: Continued evidence for prior sternotomy and CABG. Mediastinum and cardiac silhouette are stable. Mild cardiomegaly along with atherosclerotic changes to the thoracic aorta are again noted. The lung flores demonstrate chronic interstitial changes and subtle superimposed right basilar atelectasis cannot be excluded. No effusion. No pneumothorax. Skeletal structures demonstrate osteopenia and degenerative change. Impression: Chronic stable changes. Cannot exclude trace right basilar atelectasis. If the patient remains symptomatic consider chest CT for further investigation. Signed by Eldon Wang MD 10/11/2016 03:03 P
== END ==
LOC: M ADAMS 14:40
PROVIDERS: ATTEND Physician Assistant
DX: R60.0 Localized edema (principal)

== ENCOUNTER → 2016-10-29 | Outpatient (REF) | payer MEDICARE ==
[2016-10-29 20:04] LABS: CALCIUM LEVEL 9.4 MG/DL (8.8-10.2); CREATININE FOR GFR 1.96 MG/DL (0.70-1.30); GLOMERULAR FILTRATION RATE 34.6 (>35); POTASSIUM SERUM 4.2 MEQ/L (3.5-5.1)
== END ==
LOC: M SFHCADAM 14:25
PROVIDERS: ATTEND Physician Assistant
DX: M35.3 Polymyalgia rheumatica (principal); R60.9 Edema, unspecified

== ENCOUNTER → 2016-11-07 | Outpatient (CLI) | payer MEDICARE ==
--- NOTE | 2016-11-07 16:43 | REP ---
RIGHT LOWER LEG: AP and lateral views of the right lower leg are performed. The tibia and fibula are intact with no fracture. Multiple metallic clips are seen in the medial soft tissues. Scattered vascular calcifications are noted. IMPRESSION: No osseous abnormality. Multiple metallic clips in the medial soft tissues. Vascular calcifications. Signed by Jimmie De La Paz MD 11/08/2016 05:15 P
== END ==
LOC: M ADAMS 15:22
PROVIDERS: ATTEND Family Medicine
DX: M79.604 Pain in right leg (principal); M35.3 Polymyalgia rheumatica; N18.3 Chronic kidney disease, stage 3 (moderate)

== ENCOUNTER → 2016-11-07 | Outpatient (REF) | payer MEDICARE ==
[2016-11-07 19:54] LABS: CALCIUM LEVEL 8.7 MG/DL (8.8-10.2); CREATININE FOR GFR 1.58 MG/DL (0.70-1.30); GLOMERULAR FILTRATION RATE 44.4 (>35); POTASSIUM SERUM 4.5 MEQ/L (3.5-5.1)
== END ==
LOC: M SFHCADAM 15:18
PROVIDERS: ATTEND Family Medicine
DX: M35.3 Polymyalgia rheumatica (principal); N18.3 Chronic kidney disease, stage 3 (moderate)

== ENCOUNTER → 2016-11-29 | Outpatient (CLI) | payer MEDICARE ==
--- NOTE | 2016-11-29 12:33 | REP ---
Clinical: Chest pain with cough, hypertension and heart failure Technique: PA and lateral. Comparison: 10/11/2016. Findings: Mediastinum and cardiac silhouette are stable. Evidence of prior sternotomy and CABG noted. Lung flores demonstrate chronic interstitial changes without obvious acute consolidation, effusion, or pneumothorax. Skeletal structures demonstrate age-related degenerative changes. Impression: Chronic stable changes. No acute cardiopulmonary process. Signed by Eldon Wang MD 11/29/2016 12:25 P
== END ==
LOC: M ADAMS 11:27
PROVIDERS: ATTEND Physician Assistant
DX: I11.9 Hypertensive heart disease without heart failure (principal); R60.0 Localized edema; R05 Cough

== ENCOUNTER → 2016-12-24 | Outpatient (CLI) | payer MEDICARE ==
--- NOTE | 2016-12-24 13:13 | REP ---
LEFT ELBOW, FOUR VIEWS: HISTORY: Olecranon bursitis. There is no acute fracture or dislocation. The joint space is normal in appearance. IMPRESSION: There is no acute fracture or dislocation. Signed by Best Zheng MD 12/24/2016 01:21 P
== END ==
LOC: M ADAMS 10:24
PROVIDERS: ATTEND Physician Assistant
DX: M70.22 Olecranon bursitis, left elbow (principal)

== ENCOUNTER → 2017-01-10 | Outpatient (REF) | payer MEDICARE ==
[2017-01-10 15:58] LABS: MEAN CORPUSCULAR HEMOGLOBIN 28.1 pg (27.0-33.0); MEAN CORPUSCULAR HGB CONC 30.3 g/dl (32.0-36.5); MEAN CORPUSCULAR VOLUME 92.8 fl (80.0-96.0); RETIC HEMOGLOBIN CONTENT CHr 30.8 PG (24-36); RETICULOCYTE % 2.2 % (0.5-1.5); WHITE BLOOD COUNT 9.2 K/mm3 (4.0-10.0)
[2017-01-10 16:13] LABS: ALBUMIN 3.1 GM/DL (3.2-5.2); ALBUMIN/GLOBULIN RATIO 0.84 (1.00-1.93); BILIRUBIN,TOTAL 0.4 MG/DL (0.2-1.0); CALCIUM LEVEL 9.5 MG/DL (8.8-10.2); CREATININE FOR GFR 1.81 MG/DL (0.70-1.30); GLOMERULAR FILTRATION RATE 37.9 (>35); PERCENT SATURATION 10.1 % (19.7-50.0); TOTAL PROTEIN 6.8 GM/DL (6.4-8.2); URIC ACID 4.7 MG/DL (3.5-7.2)
== END ==
LOC: M SFHCPLAZ 12:08
PROVIDERS: ATTEND Family Medicine
DX: N18.3 Chronic kidney disease, stage 3 (moderate) (principal); M10.9 Gout, unspecified; D63.1 Anemia in chronic kidney disease

== ENCOUNTER → 2017-03-07 | Outpatient (REF) | payer MEDICARE ==
[2017-03-07 19:06] LABS: ALBUMIN 3.4 GM/DL (3.2-5.2); ALBUMIN/GLOBULIN RATIO 0.87 (1.00-1.93); BILIRUBIN,TOTAL 0.5 MG/DL (0.2-1.0); CALCIUM LEVEL 9.7 MG/DL (8.8-10.2); CREATININE FOR GFR 1.65 MG/DL (0.70-1.30); GLOMERULAR FILTRATION RATE 42.2 (>35); POTASSIUM SERUM 4.7 MEQ/L (3.5-5.1); TOTAL PROTEIN 7.3 GM/DL (6.4-8.2)
[2017-03-07 19:38] LABS: MEAN CORPUSCULAR HEMOGLOBIN 28.8 pg (27.0-33.0); MEAN CORPUSCULAR HGB CONC 29.8 g/dl (32.0-36.5); MEAN CORPUSCULAR VOLUME 96.7 fl (80.0-96.0); RED CELL DISTRIBUTION WIDTH 17.6 % (11.5-14.5); WHITE BLOOD COUNT 11.9 10^3/uL (4.0-10.0)
== END ==
LOC: M SFHCADAM 15:52
PROVIDERS: ATTEND Family Medicine
DX: M35.3 Polymyalgia rheumatica (principal); N18.3 Chronic kidney disease, stage 3 (moderate); I25.10 Atherosclerotic heart disease of native coronary artery without angina pectoris

== ENCOUNTER → 2017-06-10 | Outpatient (REF) | payer MEDICARE ==
[2017-06-10 20:46] LABS: HEMOGLOBIN 13.6 g/dl (14.0-18.0); MEAN CORPUSCULAR HEMOGLOBIN 30.9 pg (27.0-33.0); MEAN CORPUSCULAR HGB CONC 30.9 g/dl (32.0-36.5); PLATELET COUNT, AUTOMATED 188 10^3/uL (150-450); RED CELL DISTRIBUTION WIDTH 16.8 % (11.5-14.5); WHITE BLOOD COUNT 14.4 10^3/uL (4.0-10.0)
[2017-06-10 20:53] LABS: TOTAL 25(OH) VITAMIN D 22.4 NG/ML (30.0-100.0)
[2017-06-10 21:07] LABS: ALBUMIN 3.7 GM/DL (3.2-5.2); ALKALINE PHOSPHATASE 77 U/L (45-117); ALT/SGPT 13 U/L (12-78); ANION GAP 3 MEQ/L (8-16); AST/SGOT 10 U/L (7-37); BILIRUBIN,TOTAL 0.8 MG/DL (0.2-1.0); BLOOD UREA NITROGEN 36 MG/DL (7-18); CALCIUM LEVEL 9.4 MG/DL (8.8-10.2); CARBON DIOXIDE LEVEL 34 MEQ/L (21-32); CHLORIDE LEVEL 106 MEQ/L (98-107); CHOLESTEROL LEVEL 203 MG/DL (<200); CHOLESTEROL RISK RATIO 2.416 (<5); CREATININE FOR GFR 1.58 MG/DL (0.70-1.30); FREE T4 0.91 NG/DL (0.76-1.46); GLOMERULAR FILTRATION RATE 44.4 (>35); GLUCOSE, FASTING 121 MG/DL (83-110); HDL CHOLESTEROL 84 MG/DL (>40); LDL CHOLESTEROL 99.4 MG/DL (<100); NON-HDL-C 119 MG/DL; POTASSIUM SERUM 4.2 MEQ/L (3.5-5.1); SODIUM LEVEL 143 MEQ/L (136-145); TOTAL PROTEIN 7.4 GM/DL (6.4-8.2); TRIGLYCERIDES LEVEL 98 MG/DL (<150); URIC ACID 3.8 MG/DL (3.5-7.2)
[2017-06-10 21:34] LABS: ERYTHROCYTE SEDIMENTATION RATE 21 mm/hr (0-30)
== END ==
LOC: M SFHCADAM 15:22
DX: M35.3 Polymyalgia rheumatica (principal); N18.3 Chronic kidney disease, stage 3 (moderate); E78.2 Mixed hyperlipidemia; E55.9 Vitamin D deficiency, unspecified; M10.9 Gout, unspecified
CPT/HCPCS: 84443

== ENCOUNTER → 2017-06-15 | Outpatient (CLI) | payer MEDICARE | LOC: M ADAMS 10:42 | DX: R05 Cough (principal); J44.9 Chronic obstructive pulmonary disease, unspecified; I51.7 Cardiomegaly; Z95.1 Presence of aortocoronary bypass graft | CPT/HCPCS: 71046 ==

== ENCOUNTER 2017-06-22 10:01 | Inpatient (IN) | payer MEDICARE ==
[2017-06-22] MEDS: INDAPAMIDE 1.25MG TABLET PO (09:00)
[2017-06-22] MEDS: FUROSEMIDE 40 MG TAB PO (09:00)
[2017-06-22 11:44] LABS: BASO % 0.1 % (0.0-1.0); EOS # 0.1 10^3/uL (0.0-0.50); EOS % 1.1 % (0.0-3.0); HEMATOCRIT 39.8 % (42.0-52.0); HEMOGLOBIN 12.6 g/dl (14.0-18.0); IMMATURE GRANULOCYTE # 0.2 10^3/uL (0-0); IMMATURE GRANULOCYTE % 1.2 % (0-0); LYMPH # 1.9 10^3/uL (1.5-4.5); LYMPH % 15.4 % (24.0-44.0); MEAN CORPUSCULAR HEMOGLOBIN 31.1 pg (27.0-33.0); MEAN CORPUSCULAR HGB CONC 31.7 g/dl (32.0-36.5); MEAN CORPUSCULAR VOLUME 98.3 fl (80.0-96.0); MONO # 0.9 10^3/uL (0.0-0.8); MONO % 6.9 % (0.0-5.0); NEUTROPHILS # 9.3 10^3/uL (1.8-7.7); NEUTROPHILS % 75.3 % (36.0-66.0); PLATELET COUNT, AUTOMATED 244 10^3/uL (150-450); RED BLOOD COUNT 4.05 10^6/uL (4.30-6.10); RED CELL DISTRIBUTION WIDTH 15.8 % (11.5-14.5); WHITE BLOOD COUNT 12.3 10^3/uL (4.0-10.0)
[2017-06-22 12:02] LABS: ANION GAP 5 MEQ/L (8-16); BLOOD UREA NITROGEN 34 MG/DL (7-18); CALCIUM LEVEL 8.5 MG/DL (8.8-10.2); CARBON DIOXIDE LEVEL 34 MEQ/L (21-32); CHLORIDE LEVEL 106 MEQ/L (98-107); CREATININE FOR GFR 1.41 MG/DL (0.70-1.30); GLOMERULAR FILTRATION RATE 50.6 (>35); GLUCOSE, FASTING 131 MG/DL (70-100); POTASSIUM SERUM 3.4 MEQ/L (3.5-5.1); SODIUM LEVEL 145 MEQ/L (136-145)
[2017-06-22 12:54] LABS: INFLUENZA A AMPLIFICATION NEGATIVE (NEGATIVE); INFLUENZA B AMPLIFICATION NEGATIVE (NEGATIVE)
[2017-06-22 13:31] LABS: CPK CREATINE PHOSPHOKINASE 52 U/L (39-308); MB/CK RELATIVE INDEX 1.92 (< OR =4); NT-PRO BNP 7437 PG/ML (<450); TROPONIN I 0.04 NG/ML (< 0.10)
[2017-06-22] MEDS: CEFTRIAXONE SOD 2 GM in APPROPRIATE DILUENT 1 EA IV ×2 (14:30→17:15)
[2017-06-22] MEDS ORDERED: BISACODYL 5 MG TAB PO (15:45)
[2017-06-22] MEDS ORDERED: BISACODYL 10 MG SUPP PR (15:45)
[2017-06-22] MEDS: FUROSEMIDE 40 MG/4 ML VIAL (J1940) IV (15:54)
[2017-06-22] MEDS: ACETAMINOPHEN TAB 650MG DOSE (2X325MG) PO (15:55)
[2017-06-22] MEDS: AZITHROMYCIN INJ 500 MG, VIAL MATE ADAPTER 1 EACH in D5W 250 ML IV (15:55)
[2017-06-22] MEDS: CLOPIDOGREL 75 MG TAB PO (17:10)
[2017-06-22] MEDS: ASPIRIN 81 MG ENTERIC TAB PO (17:10)
[2017-06-22] MEDS: ENOXAPARIN 40 MG/0.4 ML SYRINGE (J1650) SC (18:27)
[2017-06-22] MEDS: ALLOPURINOL 300 MG TAB PO (18:27)
[2017-06-22] MEDS: predniSONE 10 MG TAB PO (18:27)
[2017-06-22] MEDS: ATORVASTATIN 20 MG TAB PO (21:34)
[2017-06-22] MEDS: NORCO, ANEXSIA 5/325MG TABLET (HYDROcodone/ACETAMINOPHEN) PO (21:35)
[2017-06-22] MEDS: ATENOLOL 25 MG TAB PO (21:35)
[2017-06-22] MEDS: GABAPENTIN 300 MG CAP PO (21:36)
[2017-06-23] MEDS: NORCO, ANEXSIA 5/325MG TABLET (HYDROcodone/ACETAMINOPHEN) PO ×3 (05:37→17:35)
[2017-06-23 06:05] LABS: BASO % 0.2 % (0.0-1.0); EOS % 0.2 % (0.0-3.0); HEMATOCRIT 40.4 % (42.0-52.0); HEMOGLOBIN 12.8 g/dl (14.0-18.0); IMMATURE GRANULOCYTE # 0.2 10^3/uL (0-0); IMMATURE GRANULOCYTE % 1.4 % (0-0); LYMPH # 1.4 10^3/uL (1.5-4.5); LYMPH % 11.7 % (24.0-44.0); MEAN CORPUSCULAR HEMOGLOBIN 30.9 pg (27.0-33.0); MEAN CORPUSCULAR HGB CONC 31.7 g/dl (32.0-36.5); MEAN CORPUSCULAR VOLUME 97.6 fl (80.0-96.0); MONO # 0.5 10^3/uL (0.0-0.8); MONO % 4.2 % (0.0-5.0); NEUTROPHILS % 82.3 % (36.0-66.0); PLATELET COUNT, AUTOMATED 264 10^3/uL (150-450); RED BLOOD COUNT 4.14 10^6/uL (4.30-6.10); RED CELL DISTRIBUTION WIDTH 15.7 % (11.5-14.5); WHITE BLOOD COUNT 12.2 10^3/uL (4.0-10.0)
[2017-06-23 06:41] LABS: ALBUMIN 2.4 GM/DL (3.2-5.2); ALBUMIN/GLOBULIN RATIO 0.57 (1.00-1.93); ALKALINE PHOSPHATASE 66 U/L (45-117); ALT/SGPT 16 U/L (12-78); ANION GAP 4 MEQ/L (8-16); AST/SGOT 12 U/L (7-37); BILIRUBIN,TOTAL 0.4 MG/DL (0.2-1.0); BLOOD UREA NITROGEN 28 MG/DL (7-18); CALCIUM LEVEL 8.6 MG/DL (8.8-10.2); CARBON DIOXIDE LEVEL 33 MEQ/L (21-32); CHLORIDE LEVEL 105 MEQ/L (98-107); CREATININE FOR GFR 1.34 MG/DL (0.70-1.30); GLOMERULAR FILTRATION RATE 53.7 (>35); GLUCOSE, FASTING 142 MG/DL (70-100); POTASSIUM SERUM 4.2 MEQ/L (3.5-5.1); SODIUM LEVEL 142 MEQ/L (136-145); THYROID STIMULATING HORMONE 0.794 uIU/ML (0.358-3.740); TOTAL PROTEIN 6.6 GM/DL (6.4-8.2)
[2017-06-23] MEDS: ASPIRIN 81 MG ENTERIC TAB PO (08:10)
[2017-06-23] MEDS: INDAPAMIDE 1.25MG TABLET PO (08:11)
[2017-06-23] MEDS: GABAPENTIN 300 MG CAP PO ×3 (08:11→21:57)
[2017-06-23] MEDS: FUROSEMIDE 40 MG TAB PO (08:12)
[2017-06-23] MEDS: CLOPIDOGREL 75 MG TAB PO (08:12)
[2017-06-23] MEDS: ALLOPURINOL 300 MG TAB PO (08:14)
[2017-06-23] MEDS: ATENOLOL 25 MG TAB PO ×2 (08:14→21:57)
[2017-06-23] MEDS: ENOXAPARIN 40 MG/0.4 ML SYRINGE (J1650) SC (08:14)
[2017-06-23] MEDS: predniSONE 10 MG TAB PO (08:14)
[2017-06-23] MEDS: COSOPT OCUMETER PLUS 10ML (DORZOLAMIDE/TIMOLOL) OU ×2 (11:31→21:57)
[2017-06-23] MEDS: ATORVASTATIN 20 MG TAB PO (21:56)
[2017-06-24 06:42] LABS: BASO % 0.2 % (0.0-1.0); EOS # 0.2 10^3/uL (0.0-0.50); EOS % 1.8 % (0.0-3.0); HEMATOCRIT 37.6 % (42.0-52.0); HEMOGLOBIN 11.9 g/dl (14.0-18.0); IMMATURE GRANULOCYTE # 0.2 10^3/uL (0-0); IMMATURE GRANULOCYTE % 1.5 % (0-0); LYMPH # 2.1 10^3/uL (1.5-4.5); LYMPH % 19.8 % (24.0-44.0); MEAN CORPUSCULAR HEMOGLOBIN 30.7 pg (27.0-33.0); MEAN CORPUSCULAR HGB CONC 31.6 g/dl (32.0-36.5); MEAN CORPUSCULAR VOLUME 96.9 fl (80.0-96.0); MONO # 0.8 10^3/uL (0.0-0.8); MONO % 7.9 % (0.0-5.0); NEUTROPHILS # 7.3 10^3/uL (1.8-7.7); NEUTROPHILS % 68.8 % (36.0-66.0); PLATELET COUNT, AUTOMATED 263 10^3/uL (150-450); RED BLOOD COUNT 3.88 10^6/uL (4.30-6.10); RED CELL DISTRIBUTION WIDTH 15.5 % (11.5-14.5); WHITE BLOOD COUNT 10.6 10^3/uL (4.0-10.0)
[2017-06-24 06:58] LABS: ALBUMIN 2.2 GM/DL (3.2-5.2); ALBUMIN/GLOBULIN RATIO 0.52 (1.00-1.93); ALKALINE PHOSPHATASE 67 U/L (45-117); ALT/SGPT 16 U/L (12-78); ANION GAP 4 MEQ/L (8-16); AST/SGOT 13 U/L (7-37); BILIRUBIN,TOTAL 0.3 MG/DL (0.2-1.0); BLOOD UREA NITROGEN 32 MG/DL (7-18); CALCIUM LEVEL 8.9 MG/DL (8.8-10.2); CARBON DIOXIDE LEVEL 34 MEQ/L (21-32); CHLORIDE LEVEL 104 MEQ/L (98-107); CREATININE FOR GFR 1.47 MG/DL (0.70-1.30); GLOMERULAR FILTRATION RATE 48.2 (>35); GLUCOSE, FASTING 107 MG/DL (70-100); POTASSIUM SERUM 3.7 MEQ/L (3.5-5.1); SODIUM LEVEL 142 MEQ/L (136-145); TOTAL PROTEIN 6.4 GM/DL (6.4-8.2)
[2017-06-24] MEDS: INDAPAMIDE 1.25MG TABLET PO (09:06)
[2017-06-24] MEDS: ENOXAPARIN 40 MG/0.4 ML SYRINGE (J1650) SC (09:06)
[2017-06-24] MEDS: predniSONE 10 MG TAB PO (09:07)
[2017-06-24] MEDS: ALLOPURINOL 300 MG TAB PO (09:07)
[2017-06-24] MEDS: ASPIRIN 81 MG ENTERIC TAB PO (09:07)
[2017-06-24] MEDS: GABAPENTIN 300 MG CAP PO ×3 (09:07→21:28)
[2017-06-24] MEDS: CLOPIDOGREL 75 MG TAB PO (09:08)
[2017-06-24] MEDS: COSOPT OCUMETER PLUS 10ML (DORZOLAMIDE/TIMOLOL) OU ×2 (09:08→21:28)
[2017-06-24] MEDS: FUROSEMIDE 40 MG TAB PO (09:08)
[2017-06-24] MEDS: ATENOLOL 25 MG TAB PO ×2 (09:11→21:29)
[2017-06-24] MEDS: NORCO, ANEXSIA 5/325MG TABLET (HYDROcodone/ACETAMINOPHEN) PO ×2 (10:41→18:01)
[2017-06-24] MEDS: ATORVASTATIN 20 MG TAB PO (21:28)
[2017-06-25 06:56] LABS: BASO % 0.3 % (0.0-1.0); EOS # 0.1 10^3/uL (0.0-0.50); EOS % 1.4 % (0.0-3.0); HEMATOCRIT 38.1 % (42.0-52.0); HEMOGLOBIN 12.2 g/dl (14.0-18.0); IMMATURE GRANULOCYTE # 0.1 10^3/uL (0-0); LYMPH # 2.1 10^3/uL (1.5-4.5); LYMPH % 21.8 % (24.0-44.0); MEAN CORPUSCULAR HEMOGLOBIN 30.7 pg (27.0-33.0); MONO % 9.7 % (0.0-5.0); NEUTROPHILS # 6.4 10^3/uL (1.8-7.7); NEUTROPHILS % 65.8 % (36.0-66.0); PLATELET COUNT, AUTOMATED 277 10^3/uL (150-450); RED BLOOD COUNT 3.97 10^6/uL (4.30-6.10); RED CELL DISTRIBUTION WIDTH 15.4 % (11.5-14.5); WHITE BLOOD COUNT 9.8 10^3/uL (4.0-10.0)
[2017-06-25 07:25] LABS: ALBUMIN 2.3 GM/DL (3.2-5.2); ALBUMIN/GLOBULIN RATIO 0.56 (1.00-1.93); ALKALINE PHOSPHATASE 70 U/L (45-117); ALT/SGPT 23 U/L (12-78); ANION GAP 8 MEQ/L (8-16); AST/SGOT 21 U/L (7-37); BILIRUBIN,TOTAL 0.3 MG/DL (0.2-1.0); BLOOD UREA NITROGEN 34 MG/DL (7-18); CALCIUM LEVEL 8.9 MG/DL (8.8-10.2); CARBON DIOXIDE LEVEL 32 MEQ/L (21-32); CHLORIDE LEVEL 103 MEQ/L (98-107); CREATININE FOR GFR 1.46 MG/DL (0.70-1.30); GLOMERULAR FILTRATION RATE 48.6 (>35); GLUCOSE, FASTING 99 MG/DL (70-100); POTASSIUM SERUM 3.7 MEQ/L (3.5-5.1); SODIUM LEVEL 143 MEQ/L (136-145); TOTAL PROTEIN 6.4 GM/DL (6.4-8.2)
[2017-06-25] MEDS: COSOPT OCUMETER PLUS 10ML (DORZOLAMIDE/TIMOLOL) OU (08:42)
[2017-06-25] MEDS: ATENOLOL 25 MG TAB PO (08:43)
[2017-06-25] MEDS: INDAPAMIDE 1.25MG TABLET PO (08:43)
[2017-06-25] MEDS: GABAPENTIN 300 MG CAP PO (08:43)
[2017-06-25] MEDS: ENOXAPARIN 40 MG/0.4 ML SYRINGE (J1650) SC (08:44)
[2017-06-25] MEDS: CLOPIDOGREL 75 MG TAB PO (08:44)
[2017-06-25] MEDS: ALLOPURINOL 300 MG TAB PO (08:44)
[2017-06-25] MEDS: ASPIRIN 81 MG ENTERIC TAB PO (08:44)
[2017-06-25] MEDS: FUROSEMIDE 40 MG TAB PO (08:44)
[2017-06-25] MEDS: predniSONE 10 MG TAB PO (08:44)
[2017-06-25] MEDS: NORCO, ANEXSIA 5/325MG TABLET (HYDROcodone/ACETAMINOPHEN) PO (08:52)
== END 2017-06-25 11:58 | disposition home or self-care (01) | DRG 312 ==
LOC: M MS4PR 06-24 23:10 → M ED 10:01 → M ED INP 15:44 → M MSPAV 17:30
DX: I95.1 Orthostatic hypotension (principal); I50.32 Chronic diastolic (congestive) heart failure; R29.6 Repeated falls; I25.10 Atherosclerotic heart disease of native coronary artery without angina pectoris; G47.33 Obstructive sleep apnea (adult) (pediatric); J44.9 Chronic obstructive pulmonary disease, unspecified; N18.3 Chronic kidney disease, stage 3 (moderate); R26.81 Unsteadiness on feet; Z87.891 Personal history of nicotine dependence; Z95.1 Presence of aortocoronary bypass graft; I25.2 Old myocardial infarction; Z88.8 Allergy status to other drugs, medicaments and biological substances; Z88.6 Allergy status to analgesic agent; Z88.1 Allergy status to other antibiotic agents; Z79.82 Long term (current) use of aspirin; Z79.52 Long term (current) use of systemic steroids; Z79.899 Other long term (current) drug therapy

== ENCOUNTER → 2017-09-10 | Outpatient (REF) | payer MEDICARE ==
[2017-09-10 19:53] LABS: HEMATOCRIT 38.8 % (42.0-52.0); HEMOGLOBIN 12.2 g/dl (13.5-17.5); MEAN CORPUSCULAR HEMOGLOBIN 31.4 pg (27.0-33.0); MEAN CORPUSCULAR HGB CONC 31.4 g/dl (32.0-36.5); PLATELET COUNT, AUTOMATED 306 10^3/uL (150-450); RED BLOOD COUNT 3.88 10^6/uL (4.30-6.10); RED CELL DISTRIBUTION WIDTH 14.7 % (11.5-14.5); WHITE BLOOD COUNT 11.2 10^3/uL (4.0-10.0)
[2017-09-10 20:22] LABS: ALBUMIN 3.1 GM/DL (3.2-5.2); ALBUMIN/GLOBULIN RATIO 0.84 (1.00-1.93); ALKALINE PHOSPHATASE 70 U/L (45-117); ALT/SGPT 11 U/L (12-78); ANION GAP 9 MEQ/L (8-16); AST/SGOT 15 U/L (7-37); BILIRUBIN,TOTAL 0.5 MG/DL (0.2-1.0); BLOOD UREA NITROGEN 44 MG/DL (7-18); CALCIUM LEVEL 9.2 MG/DL (8.8-10.2); CARBON DIOXIDE LEVEL 31 MEQ/L (21-32); CHLORIDE LEVEL 102 MEQ/L (98-107); CHOLESTEROL LEVEL 153 MG/DL (<200); CHOLESTEROL RISK RATIO 3.923 (<5); GLOMERULAR FILTRATION RATE 30.2 (>35); GLUCOSE, FASTING 96 MG/DL (70-100); HDL CHOLESTEROL 39 MG/DL (>40); LDL CHOLESTEROL 87.8 MG/DL (<100); NON-HDL-C 114 MG/DL; POTASSIUM SERUM 3.7 MEQ/L (3.5-5.1); SODIUM LEVEL 142 MEQ/L (136-145); TOTAL PROTEIN 6.8 GM/DL (6.4-8.2); TRIGLYCERIDES LEVEL 131 MG/DL (<150)
[2017-09-10 20:41] LABS: ERYTHROCYTE SEDIMENTATION RATE 69 mm/hr (0-30)
== END ==
LOC: M SFHCADAM 14:54
DX: N18.3 Chronic kidney disease, stage 3 (moderate) (principal); M35.3 Polymyalgia rheumatica; I11.9 Hypertensive heart disease without heart failure; I71.4 Abdominal aortic aneurysm, without rupture
CPT/HCPCS: 80053

== ENCOUNTER 2017-09-20 07:47 | Inpatient (IN) | payer MEDICARE ==
[2017-09-20 08:32] LABS: BASO # 0.1 10^3/uL (0.0-0.2); BASO % 0.5 % (0.0-1.0); EOS # 0.4 10^3/uL (0.0-0.50); EOS % 4.3 % (0.0-3.0); IMMATURE GRANULOCYTE % 0.6 % (0-3.0); LYMPH # 2.7 10^3/uL (1.5-4.5); LYMPH % 28.2 % (24.0-44.0); MEAN CORPUSCULAR HEMOGLOBIN 31.6 pg (27.0-33.0); MEAN CORPUSCULAR HGB CONC 31.6 g/dl (32.0-36.5); MONO % 10.1 % (0.0-5.0); NEUTROPHILS # 5.3 10^3/uL (1.8-7.7); NEUTROPHILS % 56.3 % (36.0-66.0); PLATELET COUNT, AUTOMATED 243 10^3/uL (150-450); RED CELL DISTRIBUTION WIDTH 14.8 % (11.5-14.5); WHITE BLOOD COUNT 9.5 10^3/uL (4.0-10.0)
[2017-09-20] MEDS: NS 1,000 ML IV (08:35)
[2017-09-20 08:42] LABS: INR 0.92; PROTHROMBIN TIME 12.4 SECONDS (12.4-14.5)
[2017-09-20 08:43] LABS: PARTIAL THROMBOPLASTIN TIME 34.5 SECONDS (26.8-37.9)
[2017-09-20 08:45] LABS: ANION GAP 5 MEQ/L (8-16); BLOOD UREA NITROGEN 32 MG/DL (7-18); CALCIUM LEVEL 8.9 MG/DL (8.8-10.2); CARBON DIOXIDE LEVEL 30 MEQ/L (21-32); CHLORIDE LEVEL 109 MEQ/L (98-107); CK-MB VALUE MASS < 1.0 NG/ML (<3.6); CPK CREATINE PHOSPHOKINASE 43 U/L (39-308); CREATININE FOR GFR 1.56 MG/DL (0.70-1.30); GLOMERULAR FILTRATION RATE 44.9 (>35); GLUCOSE, FASTING 96 MG/DL (70-100); MB/CK RELATIVE INDEX 2.32 (< OR =4); POTASSIUM SERUM 3.2 MEQ/L (3.5-5.1); SODIUM LEVEL 144 MEQ/L (136-145); TROPONIN I 0.02 NG/ML (< 0.10)
[2017-09-20 08:50] LABS: BEDSIDE GLUCOSE 90 MG/DL (83-110)
[2017-09-20] MEDS: ANEXSIA, NORCO 7.5MG/325MG TABLET(HYDROCODONE/APAP) PO (09:34)
[2017-09-20] MEDS ORDERED: NORCO, ANEXSIA 5/325MG TABLET (HYDROcodone/ACETAMINOPHEN) PO (12:30)
[2017-09-20] MEDS ORDERED: ALBUTEROL 90 MCG/ACT 8GM HFA INHALER INH (12:30)
[2017-09-20] MEDS ORDERED: ALBUTEROL SULFATE 2.5 MG/0.5 ML INH NEB SOLN INH (12:30)
[2017-09-20] MEDS: POTASSIUM CHLORIDE 10 MEQ SR TABLET PO (14:29)
[2017-09-20] MEDS: CLOPIDOGREL 75 MG TAB PO (14:30)
[2017-09-20] MEDS: ALLOPURINOL 300 MG TAB PO (14:31)
[2017-09-20] MEDS: GABAPENTIN 300 MG CAP PO ×2 (14:31→21:25)
[2017-09-20] MEDS: SENOKOT S TAB PO ×2 (14:31→21:26)
[2017-09-20] MEDS: ASPIRIN 81 MG ENTERIC TAB PO (14:32)
[2017-09-20] MEDS: ACETAMINOPHEN TAB 650MG DOSE (2X325MG) PO (16:10)
[2017-09-20] MEDS: NORCO, ANEXSIA 5/325MG TABLET (HYDROcodone/ACETAMINOPHEN) PO (17:08)
[2017-09-20] MEDS: COSOPT OCUMETER PLUS 10ML (DORZOLAMIDE/TIMOLOL) OU (21:00)
[2017-09-20] MEDS: ENOXAPARIN 30 MG/0.3 ML SYR (J1650) SC (21:00)
[2017-09-20] MEDS: ATENOLOL 25 MG TAB PO (21:25)
[2017-09-20] MEDS: ATORVASTATIN 20 MG TAB PO (21:26)
[2017-09-21 05:13] LABS: BASO % 0.3 % (0.0-1.0); EOS # 0.4 10^3/uL (0.0-0.50); EOS % 5.1 % (0.0-3.0); HEMATOCRIT 34.6 % (42.0-52.0); HEMOGLOBIN 10.9 g/dl (13.5-17.5); IMMATURE GRANULOCYTE % 0.6 % (0-3.0); LYMPH # 2.2 10^3/uL (1.5-4.5); LYMPH % 28.3 % (24.0-44.0); MEAN CORPUSCULAR HEMOGLOBIN 31.3 pg (27.0-33.0); MEAN CORPUSCULAR HGB CONC 31.5 g/dl (32.0-36.5); MEAN CORPUSCULAR VOLUME 99.4 fl (80.0-96.0); MONO # 0.8 10^3/uL (0.0-0.8); MONO % 9.8 % (0.0-5.0); NEUTROPHILS # 4.4 10^3/uL (1.8-7.7); NEUTROPHILS % 55.9 % (36.0-66.0); PLATELET COUNT, AUTOMATED 210 10^3/uL (150-450); RED BLOOD COUNT 3.48 10^6/uL (4.30-6.10); RED CELL DISTRIBUTION WIDTH 14.7 % (11.5-14.5); WHITE BLOOD COUNT 7.8 10^3/uL (4.0-10.0)
[2017-09-21 05:30] LABS: ANION GAP 4 MEQ/L (8-16); BLOOD UREA NITROGEN 28 MG/DL (7-18); CALCIUM LEVEL 8.5 MG/DL (8.8-10.2); CARBON DIOXIDE LEVEL 28 MEQ/L (21-32); CHLORIDE LEVEL 114 MEQ/L (98-107); CREATININE FOR GFR 1.41 MG/DL (0.70-1.30); GLOMERULAR FILTRATION RATE 50.5 (>35); GLUCOSE, FASTING 98 MG/DL (70-100); POTASSIUM SERUM 3.3 MEQ/L (3.5-5.1); SODIUM LEVEL 146 MEQ/L (136-145)
[2017-09-21] MEDS: SENOKOT S TAB PO ×2 (08:33→21:04)
[2017-09-21] MEDS: GABAPENTIN 300 MG CAP PO ×3 (08:33→21:04)
[2017-09-21] MEDS: CLOPIDOGREL 75 MG TAB PO (08:33)
[2017-09-21] MEDS: ASPIRIN 81 MG ENTERIC TAB PO (08:33)
[2017-09-21] MEDS: ATENOLOL 25 MG TAB PO ×2 (08:34→21:04)
[2017-09-21] MEDS: POTASSIUM CHLORIDE 10 MEQ SR TABLET PO ×2 (08:34→21:05)
[2017-09-21] MEDS: ALLOPURINOL 300 MG TAB PO (08:34)
[2017-09-21] MEDS: COSOPT OCUMETER PLUS 10ML (DORZOLAMIDE/TIMOLOL) OU ×2 (08:34→21:05)
[2017-09-21] MEDS: FUROSEMIDE 40 MG TAB PO (10:02)
[2017-09-21] MEDS: NORCO, ANEXSIA 5/325MG TABLET (HYDROcodone/ACETAMINOPHEN) PO ×2 (13:33→21:05)
[2017-09-21] MEDS: ATORVASTATIN 20 MG TAB PO (21:04)
[2017-09-21] MEDS: ENOXAPARIN 30 MG/0.3 ML SYR (J1650) SC (21:05)
[2017-09-22 05:51] LABS: BASO % 0.5 % (0.0-1.0); EOS # 0.4 10^3/uL (0.0-0.50); EOS % 4.9 % (0.0-3.0); HEMATOCRIT 35.4 % (42.0-52.0); HEMOGLOBIN 11.3 g/dl (13.5-17.5); IMMATURE GRANULOCYTE % 0.5 % (0-3.0); LYMPH # 2.5 10^3/uL (1.5-4.5); MEAN CORPUSCULAR HEMOGLOBIN 31.4 pg (27.0-33.0); MEAN CORPUSCULAR HGB CONC 31.9 g/dl (32.0-36.5); MEAN CORPUSCULAR VOLUME 98.3 fl (80.0-96.0); MONO # 0.9 10^3/uL (0.0-0.8); MONO % 10.9 % (0.0-5.0); NEUTROPHILS # 4.7 10^3/uL (1.8-7.7); NEUTROPHILS % 54.2 % (36.0-66.0); PLATELET COUNT, AUTOMATED 222 10^3/uL (150-450); RED CELL DISTRIBUTION WIDTH 14.7 % (11.5-14.5); WHITE BLOOD COUNT 8.6 10^3/uL (4.0-10.0)
[2017-09-22 06:16] LABS: ANION GAP 7 MEQ/L (8-16); BLOOD UREA NITROGEN 24 MG/DL (7-18); CALCIUM LEVEL 8.8 MG/DL (8.8-10.2); CARBON DIOXIDE LEVEL 28 MEQ/L (21-32); CHLORIDE LEVEL 110 MEQ/L (98-107); GLOMERULAR FILTRATION RATE 55.5 (>35); GLUCOSE, FASTING 102 MG/DL (70-100); POTASSIUM SERUM 3.7 MEQ/L (3.5-5.1); SODIUM LEVEL 145 MEQ/L (136-145); URIC ACID 3.7 MG/DL (3.5-7.2)
[2017-09-22 06:24] LABS: ERYTHROCYTE SEDIMENTATION RATE 58 mm/hr (0-30)
[2017-09-22] MEDS: SENOKOT S TAB PO (09:16)
[2017-09-22] MEDS: ASPIRIN 81 MG ENTERIC TAB PO (09:16)
[2017-09-22] MEDS: ATENOLOL 25 MG TAB PO (09:17)
[2017-09-22] MEDS: FUROSEMIDE 40 MG TAB PO (09:17)
[2017-09-22] MEDS: GABAPENTIN 300 MG CAP PO (09:17)
[2017-09-22] MEDS: ALLOPURINOL 100 MG TAB PO (09:17)
[2017-09-22] MEDS: CLOPIDOGREL 75 MG TAB PO (09:17)
[2017-09-22] MEDS: COSOPT OCUMETER PLUS 10ML (DORZOLAMIDE/TIMOLOL) OU (09:18)
[2017-09-22] MEDS: POTASSIUM CHLORIDE 10 MEQ SR TABLET PO (09:18)
[2017-09-22] MEDS: NORCO, ANEXSIA 5/325MG TABLET (HYDROcodone/ACETAMINOPHEN) PO (09:19)
== END 2017-09-22 12:18 | disposition home or self-care (01) | DRG 65 ==
LOC: M ED 07:47 → M ED INP 12:08 → M PCU 13:50
DX: I63.9 Cerebral infarction, unspecified (principal); I50.32 Chronic diastolic (congestive) heart failure; I13.0 Hypertensive heart and chronic kidney disease with heart failure and stage 1 through stage 4 chronic kidney disease, or unspecified chronic kidney disease; N18.3 Chronic kidney disease, stage 3 (moderate); E87.6 Hypokalemia; I25.10 Atherosclerotic heart disease of native coronary artery without angina pectoris; M10.9 Gout, unspecified; G47.33 Obstructive sleep apnea (adult) (pediatric); M35.3 Polymyalgia rheumatica; J44.9 Chronic obstructive pulmonary disease, unspecified; J30.9 Allergic rhinitis, unspecified; R29.6 Repeated falls; Z79.82 Long term (current) use of aspirin; Z79.899 Other long term (current) drug therapy; Z88.1 Allergy status to other antibiotic agents; Z88.8 Allergy status to other drugs, medicaments and biological substances; Z88.6 Allergy status to analgesic agent; I25.2 Old myocardial infarction; Z95.1 Presence of aortocoronary bypass graft; Z91.19 Patient's noncompliance with other medical treatment and regimen; Z98.49 Cataract extraction status, unspecified eye; Z87.891 Personal history of nicotine dependence; Z79.891 Long term (current) use of opiate analgesic; Z86.73 Personal history of transient ischemic attack (TIA), and cerebral infarction without residual deficits

== ENCOUNTER → 2017-12-19 | Outpatient (REF) | payer MEDICARE ==
[2017-12-19 19:39] LABS: HEMATOCRIT 41.6 % (42.0-52.0); HEMOGLOBIN 13.3 g/dl (13.5-17.5); MEAN CORPUSCULAR HEMOGLOBIN 32.4 pg (27.0-33.0); MEAN CORPUSCULAR VOLUME 101.2 fl (80.0-96.0); PLATELET COUNT, AUTOMATED 253 10^3/uL (150-450); RED BLOOD COUNT 4.11 10^6/uL (4.30-6.10); RED CELL DISTRIBUTION WIDTH 16.9 % (11.5-14.5); WHITE BLOOD COUNT 12.3 10^3/uL (4.0-10.0)
[2017-12-19 19:51] LABS: ALBUMIN 3.4 GM/DL (3.2-5.2); ALBUMIN/GLOBULIN RATIO 0.89 (1.00-1.93); ALKALINE PHOSPHATASE 84 U/L (45-117); ALT/SGPT 14 U/L (12-78); ANION GAP 8 MEQ/L (8-16); AST/SGOT 7 U/L (7-37); BILIRUBIN,TOTAL 0.4 MG/DL (0.2-1.0); BLOOD UREA NITROGEN 79 MG/DL (7-18); CALCIUM LEVEL 9.5 MG/DL (8.8-10.2); CARBON DIOXIDE LEVEL 29 MEQ/L (21-32); CHLORIDE LEVEL 104 MEQ/L (98-107); CREATININE FOR GFR 2.54 MG/DL (0.70-1.30); GLOMERULAR FILTRATION RATE 25.6 (>35); GLUCOSE, FASTING 93 MG/DL (70-100); SODIUM LEVEL 141 MEQ/L (136-145); TOTAL PROTEIN 7.2 GM/DL (6.4-8.2)
[2017-12-19 19:59] LABS: POTASSIUM SERUM 5.5 MEQ/L (3.5-5.1)
[2017-12-19 20:19] LABS: ERYTHROCYTE SEDIMENTATION RATE 59 mm/hr (0-30)
== END ==
LOC: M SFHCADAM 13:57
DX: I11.9 Hypertensive heart disease without heart failure (principal); N18.3 Chronic kidney disease, stage 3 (moderate); D63.1 Anemia in chronic kidney disease; M35.3 Polymyalgia rheumatica
CPT/HCPCS: 80053

== ENCOUNTER → 2018-01-28 | Outpatient (CLI) | payer MEDICARE | LOC: M ADAMS 13:10 | DX: J44.1 Chronic obstructive pulmonary disease with (acute) exacerbation (principal) | CPT/HCPCS: 71046 ==

== ENCOUNTER → 2018-04-23 | Outpatient (REF) | payer MEDICARE | LOC: M LAB REF 17:21 | DX: C44.310 Basal cell carcinoma of skin of unspecified parts of face (principal) | CPT/HCPCS: 88305 ==

== ENCOUNTER → 2018-05-12 | Outpatient (CLI) | payer MEDICARE ==
[2018-05-12 17:21] LABS: BASO # 0.1 10^3/uL (0.0-0.2); BASO % 0.4 % (0.0-1.0); EOS # 0.3 10^3/uL (0.0-0.50); EOS % 2.3 % (0.0-3.0); HEMATOCRIT 40.4 % (42.0-52.0); HEMOGLOBIN 12.7 g/dl (13.5-17.5); IMMATURE GRANULOCYTE % 0.6 % (0-3.0); LYMPH # 2.6 10^3/uL (1.5-4.5); LYMPH % 21.1 % (24.0-44.0); MEAN CORPUSCULAR HEMOGLOBIN 32.2 pg (27.0-33.0); MEAN CORPUSCULAR HGB CONC 31.4 g/dl (32.0-36.5); MEAN CORPUSCULAR VOLUME 102.3 fl (80.0-96.0); MONO % 8.4 % (0.0-5.0); NEUTROPHILS # 8.4 10^3/uL (1.8-7.7); NEUTROPHILS % 67.2 % (36.0-66.0); PLATELET COUNT, AUTOMATED 268 10^3/uL (150-450); RED BLOOD COUNT 3.95 10^6/uL (4.30-6.10); RED CELL DISTRIBUTION WIDTH 15.4 % (11.5-14.5); WHITE BLOOD COUNT 12.5 10^3/uL (4.0-10.0)
[2018-05-12 17:33] LABS: INR 1.01; PROTHROMBIN TIME 13.4 SECONDS (12.1-14.4)
[2018-05-12 17:40] LABS: ALBUMIN 2.8 GM/DL (3.2-5.2); ALBUMIN/GLOBULIN RATIO 0.68 (1.00-1.93); ALKALINE PHOSPHATASE 73 U/L (45-117); ALT/SGPT 15 U/L (12-78); ANION GAP 8 MEQ/L (8-16); AST/SGOT 16 U/L (7-37); BILIRUBIN,TOTAL 0.6 MG/DL (0.2-1.0); BLOOD UREA NITROGEN 56 MG/DL (7-18); CALCIUM LEVEL 8.5 MG/DL (8.8-10.2); CARBON DIOXIDE LEVEL 28 MEQ/L (21-32); CHLORIDE LEVEL 103 MEQ/L (98-107); CREATININE FOR GFR 2.17 MG/DL (0.70-1.30); GLOMERULAR FILTRATION RATE 30.7 (>35); GLUCOSE, FASTING 128 MG/DL (70-100); POTASSIUM SERUM 5.2 MEQ/L (3.5-5.1); SODIUM LEVEL 139 MEQ/L (136-145); TOTAL PROTEIN 6.9 GM/DL (6.4-8.2)
== END ==
LOC: M WUC 15:07
DX: Z01.818 Encounter for other preprocedural examination (principal); C44.319 Basal cell carcinoma of skin of other parts of face
CPT/HCPCS: 80053

== ENCOUNTER 2018-05-13 07:38 | Day surgery (SDC) | payer MEDICARE ==
[2018-05-13] MEDS ORDERED: MIDAZOLAM INJ 2 MG/2 ML VIAL (J2250) As Ordered (08:44)
[2018-05-13] MEDS ORDERED: PROPOFOL 200 MG/20 ML VIAL As Ordered (08:44)
[2018-05-13] MEDS ORDERED: LIDOCAINE 2% INJ 100 MG/5 ML SDV (FOR ANES.) As Ordered (08:44)
[2018-05-13] MEDS ORDERED: fentaNYL 100 MCG/2 ML INJECTION (J3010) As Ordered (08:44)
[2018-05-13] MEDS ORDERED: CLINDAMYCIN 600 MG/50 ML PREMIX BAG As Ordered (09:03)
[2018-05-13] MEDS ORDERED: BACITRACIN OINT 30GM As Ordered (09:04)
[2018-05-13 09:13] LABS: ANION GAP 7 MEQ/L (8-16); BLOOD UREA NITROGEN 57 MG/DL (7-18); CALCIUM LEVEL 9.2 MG/DL (8.8-10.2); CARBON DIOXIDE LEVEL 28 MEQ/L (21-32); CHLORIDE LEVEL 104 MEQ/L (98-107); CREATININE FOR GFR 2.31 MG/DL (0.70-1.30); GLOMERULAR FILTRATION RATE 28.6 (>35); GLUCOSE, FASTING 104 MG/DL (70-100); POTASSIUM SERUM 4.6 MEQ/L (3.5-5.1); SODIUM LEVEL 139 MEQ/L (136-145)
[2018-05-13] MEDS: CLINDAMYCIN 600 MG in APPROPRIATE DILUENT 1 EA IV (09:22)
[2018-05-13] MEDS ORDERED: LIDOCAINE 2% W/EPIN INJ 20ML **PRES FREE As Ordered (09:28)
[2018-05-13] MEDS ORDERED: LR 1,000 ML IV (09:30)
[2018-05-13] MEDS ORDERED: ONDANSETRON 4MG/2ML VIAL (J2405) As Ordered (09:50)
[2018-05-13] MEDS: LIDOCAINE W/EPINEPHRINE 1% 20ML VIAL As Ordered (10:26)
== END 2018-05-13 11:40 | disposition home or self-care (01) ==
LOC: M SDC 07:38
DX: C44.319 Basal cell carcinoma of skin of other parts of face (principal); I25.10 Atherosclerotic heart disease of native coronary artery without angina pectoris; I13.0 Hypertensive heart and chronic kidney disease with heart failure and stage 1 through stage 4 chronic kidney disease, or unspecified chronic kidney disease; I71.4 Abdominal aortic aneurysm, without rupture; I35.0 Nonrheumatic aortic (valve) stenosis; N18.4 Chronic kidney disease, stage 4 (severe); E78.00 Pure hypercholesterolemia, unspecified; M10.9 Gout, unspecified; R06.09 Other forms of dyspnea; I69.354 Hemiplegia and hemiparesis following cerebral infarction affecting left non-dominant side; J30.9 Allergic rhinitis, unspecified; R06.83 Snoring; G47.30 Sleep apnea, unspecified; M19.011 Primary osteoarthritis, right shoulder; R07.9 Chest pain, unspecified; Z88.1 Allergy status to other antibiotic agents; Z88.6 Allergy status to analgesic agent; Z88.8 Allergy status to other drugs, medicaments and biological substances; Z79.899 Other long term (current) drug therapy; Z79.82 Long term (current) use of aspirin; Z87.891 Personal history of nicotine dependence; Z98.41 Cataract extraction status, right eye; Z98.42 Cataract extraction status, left eye; Z96.1 Presence of intraocular lens; Z95.5 Presence of coronary angioplasty implant and graft
CPT/HCPCS: 14040

== ENCOUNTER → 2018-08-24 | Outpatient (CLI) | payer MEDICARE ==
[~2018-08-24] MED LIST changes: +AGGR1CAP; -AGGRCAP; +ALBU17IN2 INH; +ALBU83IN INH; -ALLO300T; +ALLO300T PO; -AMOX500C; +AMOX500C PO; +AMOX875T2 PO; -ASPI81TA83; +ASPI81TA83 PO; +ASPI81TA85 PO; -ATEN25TA; +ATEN25TA PO; +ATOR80TA59 PO; +CLOP75TA2 PO; +DORZ2SOL5 OU; +FURO40TA2 PO; +GABA-843 PO; -GABA600T PO; +GABA600T4 PO; +HYDR-3713 PO; +HYDR-3715 PO; +HYDR-3716 PO; +INDA25TAB PO; -INDAPAMIDE; +INDAPAMIDE PO; +KLOR10TA76 PO; +NEUR600T PO; -NITR0.4S; +NITR0.4S SL; +NITR4TASL SL; +PRED10TA2 PO; -PROV90AE; +PROV90AE INH; +SPIR-10 PO; +VICO5TAB PO; +ZYLO300T6 PO
[2018-08-24 12:47] LABS: HEMATOCRIT 37.3 % (42.0-52.0); HEMOGLOBIN 11.9 g/dl (13.5-17.5); MEAN CORPUSCULAR HEMOGLOBIN 32.2 pg (27.0-33.0); MEAN CORPUSCULAR HGB CONC 31.9 g/dl (32.0-36.5); MEAN CORPUSCULAR VOLUME 100.8 fl (80.0-96.0); PLATELET COUNT, AUTOMATED 262 10^3/uL (150-450); WHITE BLOOD COUNT 10.4 10^3/uL (4.0-10.0)
[2018-08-24 13:03] LABS: BILIRUBIN,TOTAL 0.4 MG/DL (0.2-1.0); CALCIUM LEVEL 8.8 MG/DL (8.8-10.2); CHOLESTEROL RISK RATIO 5.757 (<5); CREATININE FOR GFR 2.44 MG/DL (0.70-1.30); GLOMERULAR FILTRATION RATE 26.8 (>35); TOTAL PROTEIN 7.1 GM/DL (6.4-8.2); URIC ACID 3.7 MG/DL (3.5-7.2)
[2018-08-24 13:52] LABS: ERYTHROCYTE SEDIMENTATION RATE 75 mm/hr (0-30)
== END ==
LOC: M WUC 09:03
PROVIDERS: ATTEND Family Medicine
DX: N18.4 Chronic kidney disease, stage 4 (severe) (principal); M35.3 Polymyalgia rheumatica; I25.10 Atherosclerotic heart disease of native coronary artery without angina pectoris; M10.9 Gout, unspecified

== ENCOUNTER → 2018-11-23 | Outpatient (CLI) | payer MEDICARE ==
[~2018-11-23] MED LIST changes: -ALBU17IN2 INH; +ASPI-161 PO; +ATOR1TAB21 PO; +LIDO1CRE2 TOP; +MYLASSUD PO; +NORC1TAB8 PO; +PRED20TA PO; +PROV108A INH; +VITMTA PO; +XALA0.007 OU
[2018-11-23 13:30] LABS: HEMATOCRIT 39.8 % (42.0-52.0); HEMOGLOBIN 12.4 g/dl (13.5-17.5); MEAN CORPUSCULAR HEMOGLOBIN 32.2 pg (27.0-33.0); MEAN CORPUSCULAR HGB CONC 31.2 g/dl (32.0-36.5); MEAN CORPUSCULAR VOLUME 103.4 fl (80.0-96.0); PLATELET COUNT, AUTOMATED 200 10^3/uL (150-450); RED BLOOD COUNT 3.85 10^6/uL (4.30-6.10); WHITE BLOOD COUNT 12.8 10^3/uL (4.0-10.0)
[2018-11-23 13:36] LABS: BILIRUBIN,TOTAL 0.5 MG/DL (0.2-1.0); CALCIUM LEVEL 8.4 MG/DL (8.8-10.2); CREATININE FOR GFR 2.22 MG/DL (0.70-1.30); GLOMERULAR FILTRATION RATE 29.8 (>35); POTASSIUM SERUM 5.5 MEQ/L (3.5-5.1); TOTAL PROTEIN 6.7 GM/DL (6.4-8.2)
[2018-11-23 13:41] LABS: TOTAL 25(OH) VITAMIN D 21.1 NG/ML (30.0-100.0)
[2018-11-23 13:52] LABS: ERYTHROCYTE SEDIMENTATION RATE 44 mm/hr (0-30)
== END ==
LOC: M WUC 12:07
PROVIDERS: ATTEND Family Medicine
DX: N18.4 Chronic kidney disease, stage 4 (severe) (principal); M35.3 Polymyalgia rheumatica

== ENCOUNTER → 2018-12-29 | Outpatient (CLI) | payer MEDICARE ==
[~2018-12-29] MED LIST changes: +ALBU17IN2 INH; -ASPI-161 PO; -ATOR1TAB21 PO; -LIDO1CRE2 TOP; -MYLASSUD PO; -NORC1TAB8 PO; -PRED20TA PO; -PROV108A INH; -VITMTA PO; -XALA0.007 OU
--- NOTE | 2018-12-29 10:12 | REP ---
CT CHEST WITHOUT IV CONTRAST: No comparison study. There is clinical history of right supraclavicular mass. CT chest performed without IV contrast. Sagittal and coronal reconstruction images are performed. No mass is seen in the right supraclavicular region. There is no evidence of significant mediastinal, hilar, or chest wall lymphadenopathy. There is no pleural or pericardial effusion. The heart is not enlarged. There is moderate atherosclerotic calcification of the thoracic aorta. There is dilatation of the descending thoracic aorta. At the level of the luis eduardo the descending thoracic aorta measures 3.9 x 4.7 cm. Just above the diaphragmatic hiatus diameter of the thoracic aorta is 4.5 cm. More inferiorly there is note made of a stent of the distal abdominal aorta. 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 This has increased in size compared to the prior study of 03/06/2012 when it measured approximately 1.9 cm in diameter. No suspicious pulmonary nodule is seen. There are scattered fibrotic changes diffusely bilaterally. There is bilateral lower lobe bronchiectasis. There are degenerative change of the spine. Tiny gallstones are seen in the dependent portion of the gallbladder. There are multiple bilateral renal cysts. IMPRESSION: No mass seen in the right supraclavicular region. No suspicious pulmonary nodule or adenopathy in the chest. There are chronic fibrotic changes and bronchiectasis in the lungs. Descending thoracic aorta is dilated as discussed in detail above. In the visualized upper abdomen note is made of a stent of the abdominal aorta. Only the proximal aspect is visualized. 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 This pseudoaneurysm has increased in size since prior study of 03/06/2012 and currently measures 2.7 x 3.2 cm. Electronically Signed by Jimmie De La Paz MD 12/29/2018 07:29 P
== END ==
LOC: M RAD 07:56
PROVIDERS: ATTEND Surgery Vascular Surgery
DX: R91.8 Other nonspecific abnormal finding of lung field (principal)

== ENCOUNTER → 2019-03-23 | Outpatient (CLI) | payer MEDICARE ==
[~2019-03-23] MED LIST changes: -ALBU17IN2 INH; +PROV108A INH
[2019-03-23 12:59] LABS: HEMATOCRIT 42.4 % (42.0-52.0); HEMOGLOBIN 13.1 g/dl (13.5-17.5); MEAN CORPUSCULAR HEMOGLOBIN 33.5 pg (27.0-33.0); MEAN CORPUSCULAR HGB CONC 30.9 g/dl (32.0-36.5); MEAN CORPUSCULAR VOLUME 108.4 fl (80.0-96.0); PLATELET COUNT, AUTOMATED 172 10^3/uL (150-450); RED BLOOD COUNT 3.91 10^6/uL (4.30-6.10); WHITE BLOOD COUNT 13.9 10^3/uL (4.0-10.0)
[2019-03-23 13:28] LABS: CALCIUM LEVEL 9.2 MG/DL (8.8-10.2); CREATININE FOR GFR 2.76 MG/DL (0.70-1.30); GLOMERULAR FILTRATION RATE 23.2 (>35); POTASSIUM SERUM 4.8 MEQ/L (3.5-5.1)
[2019-03-23 13:32] LABS: ERYTHROCYTE SEDIMENTATION RATE 26 mm/hr (0-20)
== END ==
LOC: M WUC 09:49
PROVIDERS: ATTEND Family Medicine
DX: N18.4 Chronic kidney disease, stage 4 (severe) (principal); M35.3 Polymyalgia rheumatica; I11.9 Hypertensive heart disease without heart failure

== ENCOUNTER 2019-05-25 19:29 | Inpatient (IN) | payer MEDICARE ==
[~2019-05-25] VITALS: Ht 182.9 cm; Wt 77.4 kg
[2019-05-25] MEDS ORDERED: NS 1,000 ML IV ONE ×2 (19:45→21:15)
[2019-05-25] MEDS ORDERED: METOPROLOL 5 MG/5 ML VIAL IV SCH (19:45)
[2019-05-25 19:49] VITALS: O2SAT 98
[2019-05-25 20:01] LABS: BASO # 0.1 10^3/uL (0.0-0.2); BASO % 0.3 % (0.0-1.0); EOS % 0.2 % (0.0-3.0); HEMATOCRIT 43.3 % (42.0-52.0); HEMOGLOBIN 13.5 g/dl (13.5-17.5); LYMPH # 0.7 10^3/uL (1.5-5.0); LYMPH % 3.8 % (24.0-44.0); MEAN CORPUSCULAR HEMOGLOBIN 32.8 pg (27.0-33.0); MEAN CORPUSCULAR HGB CONC 31.2 g/dl (32.0-36.5); MEAN CORPUSCULAR VOLUME 105.4 fl (80.0-96.0); MONO # 0.8 10^3/uL (0.0-0.8); MONO % 4.4 % (0.0-5.0); NEUTROPHILS # 16.5 10^3/uL (1.5-8.5); PLATELET COUNT, AUTOMATED 203 10^3/uL (150-450); RED BLOOD COUNT 4.11 10^6/uL (4.30-6.10); WHITE BLOOD COUNT 18.3 10^3/uL (4.0-10.0)
--- NOTE | 2019-05-25 20:14 | REP ---
Clinical: Altered mental status. Comparison: 01/28/2018. Findings: Examination is limited by portable technique and underpenetration which accentuate the pulmonary vasculature and interstitium. Mediastinum and cardiac silhouette are stable. Prior sternotomy and CABG again noted. Lung flores demonstrate chronic COPD and interstitial changes. Ill-defined area of opacity in the left mid lung zone and left base may reflect atelectasis. No discrete focal consolidation or effusion. No pneumothorax. Impression: Diffuse chronic-appearing changes. Cannot exclude subtle atelectasis in the left mid to lower lung zone. Electronically Signed by Eldon Wang MD 05/25/2019 08:06 P
--- NOTE | 2019-05-25 20:15 | REPVR ---
PROCEDURE INFORMATION: Exam: CT Head Without Contrast Exam date and time: 05/25/2019 8:01 PM Age: 88 years old Clinical indication: Altered mental status/memory loss TECHNIQUE: Imaging protocol: Computed tomography of the head without contrast. Radiation optimization: All CT scans at this facility use at least one of these dose optimization techniques: automated exposure control; mA and/or kV adjustment per patient size (includes targeted exams where dose is matched to clinical indication); or iterative reconstruction. COMPARISON: CT Head without contrast 09/20/2017 8:08 AM FINDINGS: Brain: Old infarct mid right parietal lobe. There is parenchymal volume loss. White matter changes are demonstrated in the subcortical, centrum semiovale and periventricular white matter consistent with age related small vessel white matter angiopathic gliosis. Ventricles: The degree of ventricular dilatation is normal for age and/or degree of atrophy present. Bones/joints: Unremarkable. No acute fracture. Sinuses: Inflammatory changes in the left maxillary and right ethmoid sinus. Mastoid air cells: Visualized mastoid air cells are well aerated. Soft tissues: Unremarkable. IMPRESSION: 1. There is parenchymal volume loss. White matter changes are demonstrated in the subcortical, centrum semiovale and periventricular white matter consistent with age related small vessel white matter angiopathic gliosis. 2. The degree of ventricular dilatation is normal for age and/or degree of atrophy present. 3. Old infarct mid right parietal lobe. Electronically signed by: Valentino Mcgee On 05/25/2019 20:15:43 PM
[2019-05-25 20:16] LABS: INR 1.01
[2019-05-25 20:25] LABS: ACETAMINOPHEN LEVEL < 2.0 UG/ML (10.0-30.0); ALBUMIN 2.8 GM/DL (3.2-5.2); ALT/SGPT 12 U/L (12-78); BILIRUBIN,DIRECT 0.3 MG/DL (0.0-0.2); BILIRUBIN,TOTAL 0.7 MG/DL (0.2-1.0); BLOOD UREA NITROGEN 75 MG/DL (7-18); CALCIUM LEVEL 8.8 MG/DL (8.8-10.2); CARBON DIOXIDE LEVEL 17 MEQ/L (21-32); CHLORIDE LEVEL 110 MEQ/L (98-107); CK-MB VALUE MASS 2.5 NG/ML (<3.6); CPK CREATINE PHOSPHOKINASE 49 U/L (39-308); ETHYL ALCOHOL (ETHANOL) < 0.003 % (0.000-0.010); GLUCOSE, FASTING 106 MG/DL (70-100); POTASSIUM SERUM 5.9 MEQ/L (3.5-5.1); SALICYLATE LEVEL < 1.7 MG/DL (5.0-30.0); SODIUM LEVEL 141 MEQ/L (136-145); TOTAL PROTEIN 6.4 GM/DL (6.4-8.2); TROPONIN I 0.13 NG/ML (< 0.10)
[2019-05-25] MEDS ORDERED: LIDOCAINE 2% 5ML JELLY UROJET TOP ONE (21:00)
[2019-05-25] MEDS ORDERED: IMIPENEM/CILASTATIN 250 MG in D5W MINI-BAG PLUS 100 ML IV ONE (21:00)
[2019-05-25] MEDS ORDERED: MOM 30ML SUSPENSION UDC PO PRN (22:30)
[2019-05-25] MEDS ORDERED: MAALOX 30 ML SUSP *UDC PO PRN (22:30)
[2019-05-25] MEDS ORDERED: PRED10TA2 PO (22:58)
[2019-05-25] MEDS ORDERED: NORC1TAB8 PO (22:58)
[2019-05-25] MEDS ORDERED: XALA0.007 OU (22:58)
[2019-05-25] MEDS ORDERED: ASPI-161 PO (22:58)
[2019-05-25 23:10] VITALS: BP 100/54
[2019-05-25 23:15] VITALS: BP 100/54
[2019-05-25] MEDS ORDERED: ALBUTEROL SULFATE 2.5 MG/0.5 ML INH NEB SOLN INH PRN (23:15)
--- NOTE | 2019-05-25 23:50 | IPNPDOC ---
Text Note Date of Service GME ATTENDING ATTESTATION The patient was seen on 05/25/19 at 1015PM. I examined , reviewed 's note and agree with the findings as documented with the following additions: is an 88 yr old M w a PMH of muliple CVAs (left basal ganglia, right /left parietal lobes, right frontoparietal), unsteady gait/hx of right hip repair, dyslipidemia, AAA s/p EVAR, Gout, Pre-DM, BRISEIDA not compliant w CPAP, BPH s/p TURP, CAD s/p quadruple bypass, and chronic HTN who was brougt to the ER by his daughter because he fell down 2 times and has been confused. He does have hip problems and uses a walker; it is unclear if he had the walker when he fell down. A&P: 1 Encephalopathy cause TBD - neurochecks / f/u UA / if mental status doesnt improve the day time team may consider MRI of head & carotid US in AM 2 SIRS cause TBD (tachycardia, leukocytis and lactic acidosis) - f/u UA & switch to zosyn 3 Elevated Trop possibly due to ACS vs CVA - telemetry, f.=/u serial trops, serial EKG, lipid panel, A1C,/ give 325mg of PO ASA 4 Hyperkalemia cause TBD - telemetry / f/u repeat K if elevated will order hyperkalemia order set 5 Falls (has hx of alcohol abuse, chronic back/hip pain & uses a walker, its not clear if he had the walker when he had a fall) - check orthostats, fall precautions PT eval & CIWA protocol 6 CKD - avoid nephrotoxins VS,Fishbone, I+O VS, Fishbone, I+O Laboratory Tests 05/25/19 19:42 05/25/19 19:43 Vital Signs Date Time Temp Pulse Resp B/P (MAP) Pulse Ox O2 Delivery O2 Flow Rate FiO2 05/25/19 22:38 101 22 85/54 (64) 100 05/25/19 19:49 Nasal Cannula 4.0 36 05/25/19 19:35 97.6 SAVANA VALERIO MD May 25, 2019 23:50
[2019-05-26] VITALS (8 sets, daily range): BP systolic 102–123; BP diastolic 51–70
[2019-05-26] MEDS: LATANOPROST 0.005% OPHTH SOLN 2.5 ML OU SCH ×2 (00:22→20:14)
[2019-05-26] MEDS ORDERED: LORazepam 2 MG TAB PO PRN (00:45)
--- NOTE | 2019-05-26 00:51 | HPEPDOC ---
[facility] Medical History & Physical Date of Admission May 25, 2019 Date of Service: May 25, 2019 Primary Care Physician: Kody Naylor MD Attending Physician: SAVANA VALERIO MD History and Physical CHIEF COMPLAINT: Generalized weakness, multiple falls HISTORY OF PRESENT ILLNESS: Christiano Linares is an 88 year old male who presents with family who are concerned that the patient had two falls today. The patient states he fell twice during the day today while trying to walk. He states he was using his walker but his legs began to feel weak and he slowly fell to the ground because he was unable to support himself. He denies any lightheadedness, dizziness, chest pain, palpitations, loss of consciousness, or confusion surrounding the falls. He denies hitting his head or any trauma related to the falls. Of note, the patient was recently treated for a respiratory infection in late February/early March, but pt and family do not recall the details or what antibiotics the patient was on. He currently denies any recurrent respiratory or infectious symptoms. Family is present during evaluation (daughter and ) and assisted in providing history. Pt live with his who was at home today but did not directly witness either of the falls. PAST MEDICAL HISTORY: 1. Diastolic CHF EF 65-70% 2. CVA 2017 3. HTN 4. AAA s/p EVAR 5. CKD stage 3 6. Chronic back pain - LS spinal stenosis with radiculopathy 7. CAD s/p CABGx4 8. Gout 9. BPH s/p TURP 10. Polymyalgia Rheumatica 11. BRISEIDA PAST SURGICAL HISTORY: 1. Open Heart Quadruple Bypass 10/2000 2. Right Hip Fracture with Screws 2008 3. Abdominal Aneurysm Repaired 2009 4. Cataracts in both eyes SOCIAL HISTORY: Former smoker 2-3 PPD for 30 years, quit over 40 years ago, 70-90 pyh Family states he is a daily drinker 1-2 glasses whiskey Denies history of IV/illicit drug use Live at home with his Uses a walker at baseline FAMILY HISTORY: Unsure of parents, 3 sons with cardiac disease ALLERGIES: Please see below. REVIEW OF SYSTEMS: CONSTITUTIONAL: Denies fevers, chills, night sweats, fatigue, unexpected change in weight. HEENT: Endorses chronic vision impairment and hearing impairment which are unchanged. CARDIOVASCULAR: Denies chest pain, palpitations, shortness of breath, lightheadedness. RESPIRATORY: Denies dyspnea, cough, wheezing. GASTROINTESTINAL: Denies nausea, vomiting, abdominal pain, diarrhea, constipation, blood in stool. GENITOURINARY: Denies dysuria, urinary frequency, urinary urgency. SKIN: Denies rash, lesions. MUSCULOSKELETAL: Denies joint pain or muscle aches. NEUROLOGICAL: Endorses generalized weakness. Denies headache, dizziness. PSYCHIATRIC: Denies change in mood. HOME MEDICATIONS: Please see below. PHYSICAL EXAMINATION: VITAL SIGNS: See below GENERAL: Alert, comfortable, in no acute distress HEENT: Normocephalic, atraumatic, PERRLA, EOMI, dry mucous membranes NECK: Supple, trachea midline, no lymphadenopathy, JVP not elevated CARDIOVASCULAR: Regular rate and rhythm, normal S1 and S2. 3/6 LIZA auscultated over the upper right sternal border. No rubs or gallops RESPIRATORY: Clear to auscultation bilaterally with equal air entry bilaterally. No wheezing, rhonchi, or rales. ABDOMEN: Soft, nontender, nondistended, bowel sounds present, no masses or hepatosplenomegaly appreciated EXTREMITIES: Bilateral 1+ pedal edema. No cyanosis. Pulses 2+/4 in bilateral upper and lower extremities SKIN: dry, multiple areas of ecchymoses on bilateral upper and lower extremities NEUROLOGIC: Alert and oriented 3 to person, place and time. Cranial nerves 2-12 grossly intact. Strength 5/5 in bilateral upper and lower extremities. Decreased sensation to light touch in bilateral distal lower extremities, left worse than right. PSYCHIATRIC: Mood and affect appropriate LABORATORY DATA: See below. IMAGING: - Head CT: 1. There is parenchymal volume loss. White matter changes are demonstrated in the subcortical, centrum semiovale and periventricular white matter consistent with age related small vessel white matter angiopathic gliosis. 2. The degree of ventricular dilatation is normal for age and/or degree of atrophy present. 3. Old infarct mid right parietal lobe - CXR: Diffuse chronic-appearing changes. Cannot exclude subtle atelectasis in the left mid to lower lung zone. MICROBIOLOGY: Please see below. ASSESSMENT/PLAN: 1. Altered mental status - r/o CVA - head CT negative and benign neurologic exam, q4 neurochecks, consider MRI if worsening - r/o [place] - troponin elevated at 0.13, serial troponins, monitor on telemetry - r/o infection - UA negative, CXR negative, elevated WBC count and lactic acid, blood cultures x2 pending - reported daily alcohol use - [facility] protocol 2. Hypotension - fluid responsive, s/p 2 L fluid bolus - hold home HTN medications including atenolol, lasix, and spironolactone 3. SIRS criteria met for sepsis - elevated WBC count, elevated lactic acid, and tachycardia [facility] - lactic acid 5.5 on admission, s/p 2 L fluid bolus, level decreased to 1.9 - no clear source of infection, pt received imipenem in the ED for broad spectrum abx coverage 4. Generalized weakness with multiple falls - possible deconditioning - fall precautions, PT/OT evaluations in the morning - possible related to progressively worsening lumbar back pain with radiculopathy, continue pain regimen as below 5. Elevated TSH - may be euthyroid sick syndrome, consider outpatient follow up once stabilized from acute illness. 6. Hyperkalemia - monitor on telemetry, daily BMP 7. Chronic low back pain - continue home [place] - hold home gabapentin, consider renal dosing if restarting CKD stage 3 - Cr appears to be at baseline - avoid nephrotoxic agents DVT Prophylaxis: SC heparin and Teds Disposition: inpatient PCU Vital Signs Vital Signs Date Time Temp Pulse Resp B/P (MAP) Pulse Ox O2 Delivery O2 Flow Rate FiO2 05/25/19 22:38 101 22 85/54 (64) 100 05/25/19 19:49 Nasal Cannula 4.0 36 05/25/19 19:35 97.6 Laboratory Data Labs 24H Laboratory Tests 2 05/25/19 19:35: Bedside Glucose (Misc Panel) 94 05/25/19 19:42: Prothrombin Time 13.0, Prothromb Time International Ratio 1.01, Anion Gap 14, Glomerular Filtration Rate 26.0L, Calcium Level 8.8, Total Bilirubin 0.7, Direct Bilirubin 0.3H, Aspartate Amino Transf (AST/SGOT) 14, Alanine Aminotransferase (ALT/SGPT) 12, Alkaline Phosphatase 70, Ammonia 20, Total Creatine Kinase 49, Creatine Kinase MB 2.5, Creatine Kinase MB Relative Index 5.10H, Troponin I 0.13H, Total Protein 6.4, Albumin 2.8L, Albumin/Globulin Ratio 0.78L, Thyroid Stimulating Hormone (TSH) 4.940H, Salicylates Level < 1.7L, Acetaminophen Level < 2.0L, Ethyl Alcohol Level < 0.003 05/25/19 19:43: Immature Granulocyte % (Auto) 1.3, Neutrophils (%) (Auto) 90.0H, Lymphocytes (%) (Auto) 3.8L, Monocytes (%) (Auto) 4.4, Eosinophils (%) (Auto) 0.2, Basophils (%) (Auto) 0.3, Neutrophils # (Auto) 16.5H, Lymphocytes # (Auto) 0.7L, Monocytes # (Auto) 0.8, Eosinophils # (Auto) 0.0, Basophils # (Auto) 0.1, Nucleated Red Blood Cells % (auto) 0.0 05/25/19 19:45: Lactic Acid Level 5.5*H 05/25/19 21:00: Urine Color YELLOW, Urine Appearance HAZY, Urine pH 5.0, Urine Specific [place] 1.015, Urine Protein NEGATIVE, Urine Glucose (UA) NEGATIVE, Urine Ketones NEGATIVE, Urine Blood NEGATIVE, Urine Nitrite NEGATIVE, Urine Bilirubin NEGATIVE, Urine Urobilinogen 0.2, Urine Leukocyte Esterase NEGATIVE, Urine WBC (Auto) 0, Urine RBC (Auto) 0, Urine Hyaline Casts (Auto) 12, Urine Bacteria (Auto) NEGATIVE, Urine Squamous Epithelial Cells 0, Urine Granular Casts (Auto) 2, Urine Mucus (Auto) SMALL, Urine Sperm (Auto) CBC/BMP Laboratory Tests 05/25/19 19:42 05/25/19 19:43 Microbiology Microbiology 05/25/19 Blood Culture, Received Pending 05/25/19 Blood Culture, Received Pending Home Medications Scheduled Allopurinol (Zyloprim) 300 Mg Tab, 300 MG PO DAILY Aspirin (Aspirin EC) 81 Mg Tablet.dr, 81 MG PO DAILY Atenolol (Atenolol) 25 Mg Tab, 25 MG PO BID Clopidogrel Bisulfate (Clopidogrel) 75 Mg Tab, 75 MG PO DAILY Dorzolamide HCl/Timolol Maleat (Dorzolamide-Timolol Eye Drops) 1 Kacey Kacey, 1 DROP OU BID Furosemide (Furosemide) 40 Mg Tab, 40 MG PO DAILY Gabapentin (Neurontin) 600 Mg Tab, 600 MG PO TID Latanoprost (Xalatan) 0.005% 2.5ML Drops, 1 DROP OU QHS Prednisone (Prednisone) 10 Mg Tablet, 10 MG PO DAILY Spironolactone (Spironolactone) 25 Mg Tab, 25 MG PO DAILY Scheduled PRN Albuterol Sulf (Albuterol Sulfate) 2.5 Mg/3 Ml Nebu, 2.5 MG INH Q4H PRN for SOB/WHEEZING Hydrocodone/Acetaminophen ([place] 7.5-325 Tablet) 1 Each Tablet, 1 TAB PO QID PRN for PAIN Allergies Coded Allergies: Cephalosporins (Verified Allergy, Severe, LIP SWELLING TROUBLE BREATHING, 05/25/19) Quinolones (Verified Allergy, Unknown, 05/25/19) captopril (Verified Allergy, Unknown, 05/25/19) ciprofloxacin (Verified Allergy, Unknown, 05/25/19) colchicine (Verified Allergy, Unknown, 05/25/19) ibuprofen (Verified Allergy, Unknown, 05/25/19) A-FIB/CHADSVASC A-FIB History Current/History of A-Fib/PAF?: No GME ATTESTATION GME ATTESTATION My faculty preceptor for this patient encounter was physically present during the encounter and was fully available. All aspects of the patient interview, examination, medical decision making process, and medical care plan development were reviewed and approved by the faculty preceptor. The faculty preceptor is aware and concurs with the plan as stated in the body of this note and will attest to such by his/her cosignature. ATTENDING NOTE Pls see addendum dated May 25. STEVAN GONZALEZ D.O. May 26, 2019 00:19 SAVANA VALERIO MD May 26, 2019 02:51
[2019-05-26] MEDS: THIAMINE 100 MG TAB PO SCH ×2 (01:37→09:39)
[2019-05-26] MEDS ORDERED: HEPARIN DRIP 25,000 UNITS in IV 1 EA IV SCH (02:24)
[2019-05-26] MEDS ORDERED: HEPARIN SOD (PORCINE) 5000 UNITS/ML VIAL IV PRN (02:30)
[2019-05-26] MEDS ORDERED: ASPIRIN 81 MG CHEW TABLET PO ONE (02:30)
[2019-05-26] MEDS: ATORVASTATIN 20 MG TAB PO SCH (02:59)
[2019-05-26 03:44] LABS: HEMATOCRIT 38.8 % (42.0-52.0); HEMOGLOBIN 11.7 g/dl (13.5-17.5); MEAN CORPUSCULAR HEMOGLOBIN 31.8 pg (27.0-33.0); MEAN CORPUSCULAR HGB CONC 30.2 g/dl (32.0-36.5); MEAN CORPUSCULAR VOLUME 105.4 fl (80.0-96.0); PLATELET COUNT, AUTOMATED 155 10^3/uL (150-450); RED BLOOD COUNT 3.68 10^6/uL (4.30-6.10); WHITE BLOOD COUNT 19.4 10^3/uL (4.0-10.0)
[2019-05-26] MEDS ORDERED: PIPERACILLIN/TAZOBACTAM SOD 2.25 GM in D5W MINI-BAG PLUS 50 ML IV SCH (04:00)
[2019-05-26 04:05] LABS: CALCIUM LEVEL 8.2 MG/DL (8.8-10.2); CHOLESTEROL RISK RATIO 3.5 (<5); CREATININE FOR GFR 2.17 MG/DL (0.70-1.30); GLOMERULAR FILTRATION RATE 30.6 (>35); POTASSIUM SERUM 5.7 MEQ/L (3.5-5.1)
[2019-05-26 04:07] LABS: HEMOGLOBIN A1c 6.4 %
[2019-05-26] MEDS: IMIPENEM/CILASTATIN 250 MG in D5W MINI-BAG PLUS 100 ML IV SCH ×2 (04:22→09:41)
--- NOTE | 2019-05-26 07:55 | ECGEPIP ---
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
[2019-05-26] MEDS ORDERED: FOLIC ACID 1 MG TAB PO SCH (09:00)
[2019-05-26] MEDS ORDERED: GABAPENTIN 300 MG CAP PO SCH (09:00)
[2019-05-26] MEDS ORDERED: HEPARIN SOD (PORCINE) 5000 UNITS/ML VIAL SC SCH (09:00)
[2019-05-26] MEDS: CLOPIDOGREL 75 MG TAB PO SCH (09:39)
[2019-05-26] MEDS: predniSONE 10 MG TAB PO SCH (09:39)
[2019-05-26] MEDS: COSOPT OCUMETER PLUS 10ML (DORZOLAMIDE/TIMOLOL) OU SCH ×2 (09:40→20:13)
[2019-05-26] MEDS: ASPIRIN 81 MG ENTERIC TAB PO SCH (09:40)
[2019-05-26] MEDS: allopurinoL 300 MG TAB PO SCH (09:40)
[2019-05-26] MEDS: MULTIVITAMINS/MINERALS THERAP 1 TAB PO SCH (09:40)
[2019-05-26] MEDS: FUROSEMIDE 40 MG TAB PO SCH (11:53)
[2019-05-26] MEDS: atenoloL 25 MG TAB PO SCH ×2 (11:55→20:15)
[2019-05-26] MEDS: HEPARIN SOD (PORCINE) 5000 UNITS/ML VIAL SQ SCH ×2 (13:55→20:06)
[2019-05-26] MEDS: ANEXSIA, NORCO 7.5MG/325MG TABLET(HYDROCODONE/APAP) PO PRN ×2 (14:07→20:05)
--- NOTE | 2019-05-26 14:20 | IPN ---
DATE: 05/26/2019 Devante was seen in progressive care unit. He was admitted after his legs gave out and fell. He had been having increasing problems with ambulation. It has been going for several years progressively worse over the last year. I last saw him 10/01/2018 when he was in the office for a wheelchair assessment. He canceled his appointment in February. He has been de-escalating his medical care. He stopped seeing nephrology for chronic kidney disease, and he is refusing to see neurology for his severe lumbar spinal stenosis with neuropathy and progressive leg weakness. His past medical history shows severe degenerative disc disease, spinal stenosis with neuropathy and radiculopathy. He went to the pain clinic once, then stopped going there. Referred him to [facility] 11/10. He went once, did not agree with their assessment and has not gone back. He has coronary artery disease status post posterior-inferior wall myocardial infarction (ME) 10/24, coronary artery bypass graft (CABG) times four and he is followed by [facility]. He has aortic stenosis. His most recent echocardiogram was done at [facility] 01/11. Moderate aortic stenosis, peak gradient 29 mm, mean gradient 19 mm, ejection fraction 60-65%, while informally hypertension noted. He had an abdominal aortic aneurysm addressed with an endovascular aneurysm repair 2011. He had an enlarging type 2 endoleak 05/11. Saw a vascular specialist in [place] and had embolization done by Dr. Raymond in [place] with good results. He has hypertensive heart disease, history of recurrent gout, prediabetes, obstructive sleep apnea (BRISEIDA) refusing to use continuous positive airway pressure (CPAP), BPH status post TURP. Stage III-IV chronic kidney disease, glomerular filtration rate (GFR) hovers around 30. He had a stroke 10/01. Has persisting right-sided weakness since then. he went to acute renal failure 08/04 when he was started on valsartan. His most recent nuclear stress test was 02/04, perfusion. He has polymyalgia rheumatica diagnosed 09/09. He was on prednisone for about a year. He had relapsed 09/11 and prednisone has been restarted and is myalgias have improved with this. He had a stroke 09/10 in left basal ganglia. CODE STATUS: DO NOT RESUSCITATE DO NOT INTUBATE. This was signed in 2018 and family states today that is unchanged. The family had been referred to the [facility] a week or two ago but they had to cancel that appointment as he could not get out of the house to go. PHYSICAL EXAMINATION: 120/50, pulse 86, respiratory rate 18, 97% oxygen saturation. He is lying in bed in no distress, alert, conversant. HEENT: Unchanged. Cushingoid appearance. He has a right supraclavicular swelling, which is chronic and for which he has had radiographic workup and saw Dr. Pineda, Vascular Surgery and did not feel it was a significant vascular structure. Lungs have decreased breath sounds bilaterally. Heart: Regular rhythm. 1-2/6 systolic ejection murmur. Abdomen: Soft, nontender. No masses. Lower Extremities: Had decreased pulses of both feet but still palpable. Decreased strength in both legs. Decreased sensation in both feet. LABS: White count is 19.4 (on steroids), hemoglobin 11.7, and platelets 155. Sodium 142, potassium 5.7, BUN 66, creatinine 2.1, glucose 102. Troponin was 0.13 on admission, but went up 0.4 and now 0.3. TSH was minimally elevated, 4.9. Urinalysis looks clear. Chest x-ray looks clear. IMPRESSION: 1. 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 He is not a surgical candidate and he has already been referred to the pain clinic and [facility]. Went to both sites and has not returned. His quality of life is poor. He frequently falls. He is interested in palliative care. Palliative consult was ordered as an outpatient but he could not get there. Will do a palliative care consult in-house. He really needs placement. He falls frequently. His , Abimbola, cannot take care of him but she is refusing long-term placement. The family/sons feel he needs placement but cannot convince the parents to agree with this. Patient and family services (PFS) will need to get involved. Physical therapy has been ordered. 2. Elevated troponin. Probably a little stress ischemia. He is DO NOT RESUSCITATE/DO NOT INTUBATE and he is on atorvastatin as an outpatient, aspirin and Plavix. I think heparin drip is a little aggressive in this situation, so I stopped that and discontinued the every 6 hour partial thromboplastin time (PTT). We affirmed DO NOT RESUSCITATE/DO NOT INTUBATE status. 3. Chronic kidney disease, stage III-IV. A few weeks ago he called nephrology, cancelled future appointments. He does not want dialysis or aggressive measures for this. 5. Polymyalgia rheumatica. Check sed rate. He is on chronic steroid therapy. 6. Leukocytosis. Probably from the steroids. I do not see signs of sepsis or active infection. He is on aggressive antibiotic therapy with Primaxin. We will discontinue this. He has no source of infection identified. I think the leukocytosis is a reflection of his chronic steroid therapy. 7. Prediabetes. With all his medical problems attention to diabetic control is of low importance. 8. Hypertensive heart disease. Blood pressure is under good control. 9. Hyperlipidemia. He is on atorvastatin as an outpatient, which we will continue. 10. Chronic pain syndrome. He is on chronic [place] therapy for his back. He uses 7.5/325 four times a day and attempts to reduce this in the past were unsuccessful. He is interested palliative care, which I feel is appropriate. A palliative care consult has been placed.
[2019-05-27 04:00] VITALS: BP 118/60
[2019-05-27 06:17] LABS: HEMATOCRIT 35.6 % (42.0-52.0); HEMOGLOBIN 11.2 g/dl (13.5-17.5); MEAN CORPUSCULAR HEMOGLOBIN 32.7 pg (27.0-33.0); MEAN CORPUSCULAR HGB CONC 31.5 g/dl (32.0-36.5); MEAN CORPUSCULAR VOLUME 104.1 fl (80.0-96.0); PLATELET COUNT, AUTOMATED 166 10^3/uL (150-450); RED BLOOD COUNT 3.42 10^6/uL (4.30-6.10); WHITE BLOOD COUNT 15.6 10^3/uL (4.0-10.0)
[2019-05-27 06:44] LABS: CALCIUM LEVEL 8.5 MG/DL (8.8-10.2); CREATININE FOR GFR 2.17 MG/DL (0.70-1.30); GLOMERULAR FILTRATION RATE 30.6 (>35); POTASSIUM SERUM 5.1 MEQ/L (3.5-5.1)
--- NOTE | 2019-05-27 06:54 | ECHO ---
DATE OF STUDY: 05/26/2019 DATE OF : 1930 AGE: 88 REFERRING PHYSICIAN: Josseline Hendricks INDICATION: NSTEMI. HEIGHT: 72 inches. WEIGHT: 168 pounds. 2-D MEASUREMENTS: Aortic root: 4.0 cm Proximal ascending aorta: 3.6 cm Left atrium 4.1 cm Left ventricle diastole: 5.3 cm Left ventricle systole: 3.4 cm Ventricular septum: 1.24 cm Posterior wall: 1.11 cm LVOT: 2.4 cm DOPPLER MEASUREMENTS: Aortic valve velocity: 290 cm/sec Aortic valve VTI: 63.8 cm Peak aortic valve gradient: 34 mmHg Mean aortic valve gradient: 22 mmHg Mild aortic stenosis LVOT velocity: 80.9 cm/sec Mild-moderate mitral regurgitation. No mitral stenosis. Mitral E velocity: 81.5 cm/sec Mitral A velocity: 136 cm/sec Mild tricuspid regurgitation Estimated right ventricular systolic pressure 34-39 mmHg assuming a right atrial pressure of 5-10 mmHg Pulmonary artery acceleration time: 95 ms No pulmonic regurgitation DESCRIPTION: The rhythm was sinus with appearance of first degree AV block and right bundle branch block morphology. This was a moderately technically difficult echocardiogram. Suprasternal notch views could not be obtained (technically difficult). CONCLUSIONS: 1. Normal left ventricle internal dimensions. Mild focal hypertrophy of the basal anterior ventricular septum. Moderate hypokinesis of the basal anteroseptal segment and severe hypokinesis of the mid anteroseptal segment. Akinesis of the inferior basal segment. Probably normal wall motion and wall thickening elsewhere. Preserved overall LV systolic function. LVEF 60% by visual estimate. Grade 1 LV diastolic dysfunction. 2. Severe focal thickening and focal calcific deposits of a 3-cuspid aortic valve. Mild aortic stenosis and mild aortic regurgitation. 3. Moderate mitral annular calcification. Mild-moderate mitral regurgitation. No mitral stenosis. 4. Mild dilatation of the aortic root at the level of the sinus of Valsalva. Normal diameter of the proximal ascending aorta. 5. Suggestive of mild elevation of estimated right ventricle systolic pressure.
--- NOTE | 2019-05-27 07:53 | ECGEPIP ---
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
--- NOTE | 2019-05-27 07:55 | ECGEPIP ---
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
[2019-05-27 08:00] VITALS: BP 117/75
[2019-05-27] MEDS: COSOPT OCUMETER PLUS 10ML (DORZOLAMIDE/TIMOLOL) OU SCH ×2 (09:00→22:12)
[2019-05-27] MEDS: MULTIVITAMINS/MINERALS THERAP 1 TAB PO SCH (09:25)
[2019-05-27] MEDS: FUROSEMIDE 40 MG TAB PO SCH (09:26)
[2019-05-27] MEDS: ATORVASTATIN 20 MG TAB PO SCH (09:26)
[2019-05-27] MEDS: allopurinoL 300 MG TAB PO SCH (09:26)
[2019-05-27] MEDS: atenoloL 25 MG TAB PO SCH ×2 (09:26→20:56)
[2019-05-27] MEDS: predniSONE 10 MG TAB PO SCH (09:26)
[2019-05-27] MEDS: ASPIRIN 81 MG ENTERIC TAB PO SCH (09:26)
[2019-05-27] MEDS: HEPARIN SOD (PORCINE) 5000 UNITS/ML VIAL SQ SCH ×2 (09:27→20:56)
[2019-05-27] MEDS: CLOPIDOGREL 75 MG TAB PO SCH (09:27)
[2019-05-27] MEDS: ANEXSIA, NORCO 7.5MG/325MG TABLET(HYDROCODONE/APAP) PO PRN ×2 (09:28→20:58)
--- NOTE | 2019-05-27 10:15 | IPNPDOC ---
Subjective Date Seen The patient was seen on 05/27/19. Subjective Chief Complaint/HPI No new complaints Constitutional: Denies: Chills, Fever Pulmonary: Denies: Dyspnea, Cough Cardiovascular: Denies: Chest Pain, Palpitations, Orthopnea Gastrointestinal: Denies: Nausea, Vomiting, Abdominal Pain, Diarrhea, Constipation Objective Physical Examination General Exam: Positive: Alert, No Acute Distress Chest Exam: Positive: Normal air movement, Wheezing (few wheezes BL) Heart Exam: Positive: Rate Normal, Regular Rhythm Abdomen Exam: Positive: Normal bowel sounds, Soft; Negative: Tenderness Extremity Exam: Negative: Edema Assessment /Plan Problems (1) Elevated troponin Response to Treatment: Improving Problem Text: Per progress note yesterday - possible mild transient stress ischemia. Stable now - Medical management only (2) Spinal stenosis of lumbar region Status: Chronic Problem Text: Not surgical candidate - Frequent falls at home due to unsteady gait PT to evaluate patient today to determine if candidate for ARU vs Subacute REhab vs placement (3) Polymyalgia rheumatica Status: Chronic Problem Text: ESR = 48 on prednisone 10 mg daily - I will increase dose to 20 mg (4) CKD (chronic kidney disease), stage IV Status: Chronic Response to Treatment: Stable (5) DM2 (diabetes mellitus, type 2) Status: Chronic Response to Treatment: Stable (6) Frequent falls Problem Text: see above (7) COPD (chronic obstructive pulmonary disease) Status: Chronic Response to Treatment: Stable Problem Text: A little wheezy today - restart nebs (8) CAD (coronary artery disease) Status: Chronic Response to Treatment: Stable Problem Text: Cont ASA/Plavix/Atorvastatin/Atenolol Plan/VTE VTE Prophylaxis Ordered?: Yes (SQ heparin) Plan Therapy: PT, OT Family Medicine Attending Note: I saw and examined Mr. Linares, discussed with MARLA Copeland. Agree with her note as documented. He's being screened for appropriate placement today. As noted above his steroid is being increased as probable that his PMR plays a role in his falls. (snapper on) Disposition Will possibly need ST rehab. Get ARU screen. Also patient and family interested in Palliative care referral due to his chronic pain and other chronic worsening medical issues VS, I&O, 24H, Fishbone Vital Signs/I&O Vital Signs Date Time Temp Pulse Resp B/P (MAP) Pulse Ox O2 Delivery O2 Flow Rate FiO2 05/27/19 09:28 20 05/27/19 08:00 97.9 78 117/75 (89) 97 Room Air 05/26/19 17:45 2.0 05/25/19 19:49 36 I&O- Last 24 Hours up to 6 AM 05/27/19 06:00 Intake Total 580 ml Output Total 500 ml Balance 80 ml Laboratory Data 24H LABS Laboratory Tests 2 05/26/19 10:57: Erythrocyte Sedimentation Rate 48H 05/27/19 05:44: Nucleated Red Blood Cells % (auto) 0.0, Anion Gap 8, Glomerular Filtration Rate 30.6L, Calcium Level 8.5L CBC/BMP Laboratory Tests 05/27/19 05:44 Microbiology Microbiology 05/25/19 Blood Culture - Preliminary, Resulted No growth after 24 hours . All specim... 05/25/19 Blood Culture - Preliminary, Resulted No growth after 24 hours . All specim... ANTELMO DEVI PA-C May 27, 2019 10:14 am Manuel Walters MD May 27, 2019 5:53 pm
[2019-05-27] MEDS: ALBUTEROL SULFATE 2.5 MG/0.5 ML INH NEB SOLN NEB SCH ×2 (13:11→20:00)
[2019-05-27 16:00] VITALS: BP 103/57
[2019-05-27 20:55] VITALS: BP 101/54
[2019-05-27] MEDS: LATANOPROST 0.005% OPHTH SOLN 2.5 ML OU SCH (22:12)
[2019-05-28] MEDS: ALBUTEROL SULFATE 2.5 MG/0.5 ML INH NEB SOLN NEB SCH ×4 (01:53→19:27)
[2019-05-28 02:20] VITALS: BP 115/65
[2019-05-28 05:29] VITALS: BP 106/64
[2019-05-28 06:32] LABS: HEMOGLOBIN 10.8 g/dl (13.5-17.5); MEAN CORPUSCULAR HEMOGLOBIN 31.7 pg (27.0-33.0); MEAN CORPUSCULAR VOLUME 105.6 fl (80.0-96.0); PLATELET COUNT, AUTOMATED 182 10^3/uL (150-450); RED BLOOD COUNT 3.41 10^6/uL (4.30-6.10); WHITE BLOOD COUNT 13.5 10^3/uL (4.0-10.0)
[2019-05-28 06:55] LABS: CALCIUM LEVEL 8.9 MG/DL (8.8-10.2); CREATININE FOR GFR 2.13 MG/DL (0.70-1.30); GLOMERULAR FILTRATION RATE 31.3 (>35); POTASSIUM SERUM 4.9 MEQ/L (3.5-5.1)
[2019-05-28] MEDS: allopurinoL 300 MG TAB PO SCH (08:22)
[2019-05-28] MEDS: ATORVASTATIN 20 MG TAB PO SCH (08:22)
[2019-05-28] MEDS: CLOPIDOGREL 75 MG TAB PO SCH (08:22)
[2019-05-28] MEDS: ASPIRIN 81 MG ENTERIC TAB PO SCH (08:22)
[2019-05-28] MEDS: predniSONE 20 MG TAB PO SCH (08:22)
[2019-05-28] MEDS: HEPARIN SOD (PORCINE) 5000 UNITS/ML VIAL SQ SCH ×2 (08:22→20:18)
[2019-05-28] MEDS: MULTIVITAMINS/MINERALS THERAP 1 TAB PO SCH (08:22)
[2019-05-28] MEDS: atenoloL 25 MG TAB PO SCH ×2 (08:25→20:20)
[2019-05-28] MEDS: COSOPT OCUMETER PLUS 10ML (DORZOLAMIDE/TIMOLOL) OU SCH ×2 (08:25→20:19)
[2019-05-28] MEDS: FUROSEMIDE 40 MG TAB PO SCH (08:40)
--- NOTE | 2019-05-28 10:00 | DSES ---
DATE OF ADMISSION: 05/25/2019 DATE OF DISCHARGE: BRIEF HISTORY AND PHYSICAL: The patient is an 88-year-old with a past medical history of CVA in the left basal ganglia, right and left parietal lobes and right frontoparietal who has a history of unsteady gait and history of right hip repair who was brought to the emergency room by his because he had fallen twice and seemed confused. He has chronic hip problems and uses a walker at baseline. PAST MEDICAL HISTORY: Significant for diastolic congestive heart failure with ejection fraction of 65-70%, CVA in 2018, hypertension, abdominal aortic aneurysm status post EVAR, chronic kidney disease stage III to IV, chronic back pain, lumbosacral spinal stenosis with radiculopathy, coronary artery disease, status post coronary artery bypass graft (CABG) times four, gout, benign prostatic hypertrophy (BPH), polymyalgia rheumatica on chronic prednisone, obstructive sleep apnea. PERTINENT LABORATORIES ON ADMISSION: Sodium 141, potassium 5.9, BUN 75, creatinine 2.5, glucose 106, lactic acid 5.5, TSH 4.9, troponin 0.13. CIP unrevealing. CT of the head showed parenchymal volume loss consistent with age-related small vessel white matter, angiopathic gliosis and the degree of ventricular dilatation was normal for age, old infarct noted in the mid right parietal lobe. Chest x-ray showed chronic changes. He had followup troponins that showed slight elevation of up to 0.4 and then returned back to 0.3. HOSPITAL COURSE: 1. The patient was admitted for frequent falls secondary to polyneuropathy from severe lumbosacral spinal stenosis. He is not a surgical candidate and he has already been referred to the pain clinic in [facility]. He went to both sites and had not returned. His quality of life is poor, as falls have become frequent. He lives at home with his . The family is interested in palliative care and a palliative consultation has been ordered. In the meantime, the patient does not want to be placed in a detention; however, he is a candidate for acute rehabilitation, screen has been ordered and is pending. In the meantime, we will make him [facility] facility (SNF) for subacute rehab unless he qualifies for acute rehabilitation. Patient family services is involved and will let the patient continue with some rehab in hopes that he gains enough strength and improvement in balance so as not to fall frequently at home, since he is there only with his . 2. Elevated troponin, felt probably to be from some mild stress ischemia. He is a DO NOT RESUSCITATE/DO NOT INTUBATE. He is on atorvastatin, aspirin and Plavix. Heparin drip was started but we stopped this and his troponin trended down and he has been stable. 3. 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 A few weeks ago he called nephrology and cancelled future appointments. He does not want dialysis or aggressive measures for this. His renal function has been stable. 4. Polymyalgia rheumatica. He is on chronic steroids, usually 10 mg of prednisone a day. His sedimentation rate was in the 40s. I bumped up his prednisone to 20 thinking that perhaps some of his difficulty ambulating is related to some of the polymyalgia and so now he is on 20 mg of prednisone and we will see if that helps. 5. Leukocytosis. Probably from stress and steroids. No identifiable infection was found. His white count improved back down to 13, which is about what would expect on steroids and he has not gotten any treatments for this. 6. Prediabetes, stable. 7. Hypertension, hypertensive heart disease, stable. 8. Hyperlipidemia. He is on atorvastatin. 9. Chronic pain. He is on chronic [place]. We have attempted to reduce this in the past and have been unsuccessful. Palliative care has been ordered. 10. Chronic obstructive pulmonary disease (COPD). He is on nebulizers and those will be continued. DISPOSITION: He is stable for SNF. His medications will be dictated at the time of his transfer to the detention. DISCHARGE DIAGNOSES: 1. Frequent falls secondary to polyneuropathy and severe lumbosacral spinal stenosis. 2. Severe lumbosacral spinal stenosis. 3. Elevated troponin. 4. 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 5. Polymyalgia rheumatica. 6. Leukocytosis. 7. Pre diabetes. 8. Hypertensive heart disease. 9. Hyperlipidemia. 10. Chronic pain. 11. Chronic obstructive pulmonary disease (COPD).
[2019-05-28 14:00] VITALS: BP 113/72
[2019-05-28 16:00] VITALS: BP 118/64
[2019-05-28] MEDS: LATANOPROST 0.005% OPHTH SOLN 2.5 ML OU SCH (20:18)
[2019-05-28] MEDS: ONDANSETRON 4 MG TAB (S0181) PO PRN (20:46)
[2019-05-29] MEDS: ALBUTEROL SULFATE 2.5 MG/0.5 ML INH NEB SOLN NEB SCH ×4 (01:36→20:22)
[2019-05-29] MEDS: ONDANSETRON 4 MG TAB (S0181) PO PRN ×2 (02:08→18:11)
[2019-05-29 06:00] VITALS: BP 104/56
--- NOTE | 2019-05-29 07:30 | IPN ---
DATE: 05/29/2019 Devante was seen on [address], sleeping, aroused well. I did want to document that I had a conversation with his , Khalida and son yesterday in the office. Plan is currently for short term rehabilitation and then discharge to home. Acute rehabilitation unit (ARU) has been consulted but I do not see anything back about that. So we will probably wait until Friday to find out what is going on as far as disposition.
[2019-05-29] MEDS: predniSONE 20 MG TAB PO SCH (08:45)
[2019-05-29] MEDS: HEPARIN SOD (PORCINE) 5000 UNITS/ML VIAL SQ SCH ×2 (08:45→20:33)
[2019-05-29] MEDS: MULTIVITAMINS/MINERALS THERAP 1 TAB PO SCH (08:45)
[2019-05-29] MEDS: CLOPIDOGREL 75 MG TAB PO SCH (08:45)
[2019-05-29] MEDS: allopurinoL 300 MG TAB PO SCH (08:45)
[2019-05-29] MEDS: FUROSEMIDE 40 MG TAB PO SCH (08:46)
[2019-05-29] MEDS: ATORVASTATIN 20 MG TAB PO SCH (08:46)
[2019-05-29] MEDS: ASPIRIN 81 MG ENTERIC TAB PO SCH (08:46)
[2019-05-29] MEDS: COSOPT OCUMETER PLUS 10ML (DORZOLAMIDE/TIMOLOL) OU SCH ×2 (08:55→20:32)
[2019-05-29] MEDS: atenoloL 25 MG TAB PO SCH ×2 (08:58→20:32)
[2019-05-29] MEDS: ANEXSIA, NORCO 7.5MG/325MG TABLET(HYDROCODONE/APAP) PO PRN ×2 (11:23→18:01)
[2019-05-29] MEDS: LATANOPROST 0.005% OPHTH SOLN 2.5 ML OU SCH (20:32)
[2019-05-30] MEDS: ALBUTEROL SULFATE 2.5 MG/0.5 ML INH NEB SOLN NEB SCH ×4 (01:03→21:03)
[2019-05-30 06:00] VITALS: BP 90/57
[2019-05-30 06:38] LABS: HEMATOCRIT 36.3 % (42.0-52.0); HEMOGLOBIN 11.4 g/dl (13.5-17.5); MEAN CORPUSCULAR HEMOGLOBIN 32.4 pg (27.0-33.0); MEAN CORPUSCULAR HGB CONC 31.4 g/dl (32.0-36.5); MEAN CORPUSCULAR VOLUME 103.1 fl (80.0-96.0); PLATELET COUNT, AUTOMATED 199 10^3/uL (150-450); RED BLOOD COUNT 3.52 10^6/uL (4.30-6.10); WHITE BLOOD COUNT 10.7 10^3/uL (4.0-10.0)
[2019-05-30 07:10] LABS: CALCIUM LEVEL 9.1 MG/DL (8.8-10.2); CREATININE FOR GFR 2.08 MG/DL (0.70-1.30); GLOMERULAR FILTRATION RATE 32.2 (>35); POTASSIUM SERUM 4.9 MEQ/L (3.5-5.1)
[2019-05-30] MEDS: predniSONE 20 MG TAB PO SCH (08:35)
[2019-05-30] MEDS: HEPARIN SOD (PORCINE) 5000 UNITS/ML VIAL SQ SCH ×2 (08:35→20:16)
[2019-05-30] MEDS: ASPIRIN 81 MG ENTERIC TAB PO SCH (08:36)
[2019-05-30] MEDS: MULTIVITAMINS/MINERALS THERAP 1 TAB PO SCH (08:36)
[2019-05-30] MEDS: CLOPIDOGREL 75 MG TAB PO SCH (08:36)
[2019-05-30] MEDS: atenoloL 25 MG TAB PO SCH ×2 (08:36→20:16)
[2019-05-30] MEDS: ATORVASTATIN 20 MG TAB PO SCH (08:37)
[2019-05-30] MEDS: FUROSEMIDE 40 MG TAB PO SCH (08:37)
[2019-05-30] MEDS: COSOPT OCUMETER PLUS 10ML (DORZOLAMIDE/TIMOLOL) OU SCH ×2 (08:37→20:16)
[2019-05-30] MEDS: allopurinoL 300 MG TAB PO SCH (08:37)
[2019-05-30] MEDS: ANEXSIA, NORCO 7.5MG/325MG TABLET(HYDROCODONE/APAP) PO PRN ×3 (09:26→22:09)
--- NOTE | 2019-05-30 12:19 | IPN ---
DATE OF SERVICE: 05/30/2019 Devante is frustrated and irritated about being in the hospital. He seems to be moving his joints a little better since the prednisone dose was increased. He does not feel like he is making any progress. Frustrated about the wait for rehabilitation. PHYSICAL EXAMINATION: Afebrile. 98/57. Alert, conversant, in no distress, mildly agitated. Lungs clear. Heart: Regular rate and rhythm. Abdomen: Soft, nontender. Moving his arms a little easier. LABORATORIES: Complete blood count (CBC) and basic metabolic profile (BMP) were drawn, and they look good. No change. IMPRESSION: 1. Severe spinal stenosis with polyneuropathy. Not a surgical candidate. Refusing to go either to the pain clinic or to neurology. We did put in a palliative care consult. I do not see where he has been seen yet. We are waiting for a short-term rehabilitation bed. 2. Polymyalgia rheumatica, improved on increased dose of prednisone. 3. Chronic kidney disease. Renal function has improved since he has been in the hospital. Declines dialysis or seeing quick mixer operator. 4. Elevated troponin. Probably stress ischemia. No cardiac events since then.
[2019-05-30 20:10] VITALS: BP 108/57
[2019-05-30] MEDS: LATANOPROST 0.005% OPHTH SOLN 2.5 ML OU SCH (20:17)
[2019-05-30] MEDS: ONDANSETRON 4 MG TAB (S0181) PO PRN (22:08)
[2019-05-31] MEDS: ALBUTEROL SULFATE 2.5 MG/0.5 ML INH NEB SOLN NEB SCH ×2 (02:00→08:15)
[2019-05-31] MEDS: ANEXSIA, NORCO 7.5MG/325MG TABLET(HYDROCODONE/APAP) PO PRN (04:34)
[2019-05-31 06:00] VITALS: BP 126/52
[2019-05-31 08:07] VITALS: BP 126/52
[2019-05-31] MEDS: ATORVASTATIN 20 MG TAB PO SCH (08:07)
[2019-05-31] MEDS: MULTIVITAMINS/MINERALS THERAP 1 TAB PO SCH (08:07)
[2019-05-31] MEDS: atenoloL 25 MG TAB PO SCH (08:07)
[2019-05-31] MEDS: ASPIRIN 81 MG ENTERIC TAB PO SCH (08:07)
[2019-05-31] MEDS: CLOPIDOGREL 75 MG TAB PO SCH (08:07)
[2019-05-31] MEDS: HEPARIN SOD (PORCINE) 5000 UNITS/ML VIAL SQ SCH (08:07)
[2019-05-31] MEDS: allopurinoL 300 MG TAB PO SCH (08:07)
[2019-05-31] MEDS: COSOPT OCUMETER PLUS 10ML (DORZOLAMIDE/TIMOLOL) OU SCH (08:08)
[2019-05-31] MEDS: FUROSEMIDE 40 MG TAB PO SCH (08:08)
[2019-05-31] MEDS: predniSONE 20 MG TAB PO SCH (08:08)
[2019-05-31] MEDS ORDERED: MYLASSUD PO (10:40)
[2019-05-31] MEDS ORDERED: PRED20TA PO (10:40)
[2019-05-31] MEDS ORDERED: ATOR1TAB21 PO (10:40)
[2019-05-31] MEDS ORDERED: VITMTA PO (10:40)
[2019-05-31] MEDS ORDERED: LIDO1CRE2 TOP (10:41)
--- NOTE | 2019-05-31 13:18 | DS.PDOC ---
Discharge Summary General Date of Admission May 25, 2019 at 22:13 Date of Discharge 05/618 Primary Care Physician: Kody Naylor MD Attending Physician: Carlos Nails M.D. Discharge Summary PROCEDURES PERFORMED DURING STAY: None. ADMITTING DIAGNOSES: 1.Altered mental status 2. Hypotension 3. SIRS criteria met for sepsis 4. Generalized weakness with multiple falls 5. Elevated TSH 6. Hyperkalemia 7. Chronic low back pain 8. CKD stage 3 DISCHARGE DIAGNOSES: DISCHARGE DIAGNOSES: 1. Frequent falls secondary to polyneuropathy and severe lumbosacral spinal stenosis. 2. Severe lumbosacral spinal stenosis. 3. Elevated troponin. 4. 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 5. Polymyalgia rheumatica. 6. Leukocytosis. 7. Pre diabetes. 8. Hypertensive heart disease. 9. Hyperlipidemia. 10. Chronic pain. 11. Chronic obstructive pulmonary disease (COPD). COMPLICATIONS/CHIEF COMPLAINT: Frequent Falls. HISTORY OF PRESENT ILLNESS: HISTORY OF PRESENT ILLNESS: Christiano Linares is an 88 year old male who presents with family who are concerned that the patient had two falls today. The patient states he fell twice during the day today while trying to walk. He states he was using his walker but his legs began to feel weak and he slowly fell to the ground because he was unable to support himself. He denies any lightheadedness, dizziness, chest pain, palpitations, loss of consciousness, or confusion surrounding the falls. He denies hitting his head or any trauma related to the falls. Of note, the patient was recently treated for a respiratory infection in late February/early March, but pt and family do not recall the details or what antibiotics the patient was on. He currently denies any recurrent respiratory or infectious symptoms. Family is present during evaluation (daughter and ) and assisted in providing history. Pt live with his who was at home today but did not directly witness either of the falls. HOSPITAL COURSE: HOSPITAL COURSE: 1. The patient was admitted for frequent falls secondary to polyneuropathy from severe lumbosacral spinal stenosis. He is not a surgical candidate and he has already been referred to the pain clinic in [facility]. He went to both sites and had not returned. His quality of life is poor, as falls have become frequent. He lives at home with his . The family is interested in palliative care and a palliative consultation has been ordered. In the meantime, the patient does not want to be placed in a alf; however, he is a candidate for acute rehabilitation, screen has been ordered and is pending. In the meantime, we will make him long term facility (SNF) for subacute rehab unless he qualifies for acute rehabilitation. Patient family services is involved and will let the patient continue with some rehab in hopes that he gains enough strength and improvement in balance so as not to fall frequently at home, since he is there only with his . 2. Elevated troponin, felt probably to be from some mild stress ischemia. He is a DO NOT RESUSCITATE/DO NOT INTUBATE. He is on atorvastatin, aspirin and Plavix. Heparin drip was started but we stopped this and his troponin trended down and he has been stable. 3. 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 A few weeks ago he called nephrology and cancelled future appointments. He does not want dialysis or aggressive measures for this. His renal function has been stable. 4. Polymyalgia rheumatica. He is on chronic steroids, usually 10 mg of prednisone a day. His sedimentation rate was in the 40s. I bumped up his prednisone to 20 thinking that perhaps some of his difficulty ambulating is related to some of the polymyalgia and so now he is on 20 mg of prednisone and we will see if that helps. 5. Leukocytosis. Probably from stress and steroids. No identifiable infection was found. His white count improved back down to 13, which is about what would expect on steroids and he has not gotten any treatments for this. 6. Prediabetes, stable. 7. Hypertension, hypertensive heart disease, stable. 8. Hyperlipidemia. He is on atorvastatin. 9. Chronic pain. He is on chronic [place]. We have attempted to reduce this in the past and have been unsuccessful. Palliative care has been ordered. 10. Chronic obstructive pulmonary disease (COPD). He is on nebulizers and those will be continued. DISCHARGE MEDICATIONS: Please see below. ALLERGIES: Please see below. PHYSICAL EXAMINATION ON DISCHARGE: VITAL SIGNS: Please see below. GENERAL: HEENT: NECK: CARDIOVASCULAR EXAMINATION: RESPIRATORY EXAMINATION: ABDOMINAL EXAMINATION: EXTREMITIES: SKIN: NEUROLOGICAL EXAMINATION: PSYCHIATRIC EXAMINATION: LABORATORY DATA: Please see below. IMAGING: Head CT and CXR PROGNOSIS: fair ACTIVITY: As tolerated DIET: 2 gram sodium DISCHARGE PLAN: DISPOSITION: [facility]. DISCHARGE INSTRUCTIONS: 1. 2 gram sodium diet 2. f/u with PCP upon DC from [facility] ITEMS TO FOLLOWUP ON ON OUTPATIENT: NONE DISCHARGE CONDITION: Stable TIME SPENT ON DISCHARGE: Greater than 10 minutes. Vital Signs/I&Os Vital Signs Date Time Temp Pulse Resp B/P (MAP) Pulse Ox O2 Delivery O2 Flow Rate FiO2 05/31/19 08:07 61 126/52 05/31/19 06:00 97.4 20 97 Room Air 05/26/19 17:45 2.0 05/25/19 19:49 36 I&O- Last 24 Hours up to 6 AM 05/31/19 05:59 Intake Total 1170 ml Output Total 0 ml Balance 1170 ml Microbiology Microbiology 05/25/19 Blood Culture - Final, Complete NO GROWTH AFTER 5 DAYS 05/25/19 Blood Culture - Final, Complete NO GROWTH AFTER 5 DAYS Discharge Medications Scheduled Allopurinol (Zyloprim) 300 Mg Tab, 300 MG PO DAILY, (Reported) Aspirin (Aspirin EC) 81 Mg Tablet.dr, 81 MG PO DAILY, (Reported) Atenolol (Atenolol) 25 Mg Tab, 25 MG PO BID, (Reported) Atorvastatin Calcium (Atorvastatin Calcium) 20 Mg Tablet, 40 MG PO DAILY Clopidogrel Bisulfate (Clopidogrel) 75 Mg Tab, 75 MG PO DAILY, (Reported) Dorzolamide HCl/Timolol Maleat (Dorzolamide-Timolol Eye Drops) 1 Kacey Kacey, 1 DROP OU BID, (Reported) Furosemide (Furosemide) 40 Mg Tab, 40 MG PO DAILY, (Reported) Gabapentin (Neurontin) 600 Mg Tab, 600 MG PO TID, (Reported) Latanoprost (Xalatan) 0.005% 2.5ML Drops, 1 DROP OU QHS, (Reported) Lidocaine (Lidocaine) 5 Gm Cream..g., 1 APLCT TOP BID Multivitamins (Thera M Plus Tablet) 1 Each Tablet, 1 TAB PO DAILY Prednisone (Prednisone) 20 Mg Tablet, 20 MG PO DAILY Scheduled PRN Albuterol Sulf (Albuterol Sulfate) 2.5 Mg/3 Ml Nebu, 2.5 MG INH Q4H PRN for SOB/WHEEZING, (Reported) Aluminum/Magnesium/Simeth (Mag-Al Plus Suspension) 30 Ml Oral.susp, 30 ML PO DAILY PRN for DYSPEPSIA Hydrocodone/Acetaminophen ([place] 7.5-325 Tablet) 1 Each Tablet, 1 TAB PO QID PRN for PAIN, (Reported) Allergies Coded Allergies: Cephalosporins (Verified Allergy, Severe, LIP SWELLING TROUBLE BREATHING, 05/25/19) Quinolones (Verified Allergy, Unknown, 05/25/19) captopril (Verified Allergy, Unknown, 05/25/19) ciprofloxacin (Verified Allergy, Unknown, 05/25/19) colchicine (Verified Allergy, Unknown, 05/25/19) ibuprofen (Verified Allergy, Unknown, 05/25/19) Melissa Mccormick CENTRAL OFFICE OPERATOR SUPERVISOR May 31, 2019 13:18
== END 2019-05-31 12:35 | DRG 546 ==
LOC: EDBD 19:29 → M ED 19:29 → INTOOBSV 21:03 → M MS5PR 21:03 → ENRESERV 21:09 → UNDODISOB 22:07 → OBSVTOIN 22:13 → M PCU 23:03 → M MS5PR 05-27 13:00
PROVIDERS: ADMIT Internal Medicine; ATTEND Family Medicine
DX: M35.3 Polymyalgia rheumatica (principal); I50.32 Chronic diastolic (congestive) heart failure; I13.0 Hypertensive heart and chronic kidney disease with heart failure and stage 1 through stage 4 chronic kidney disease, or unspecified chronic kidney disease; G93.40 Encephalopathy, unspecified; I69.351 Hemiplegia and hemiparesis following cerebral infarction affecting right dominant side; N18.3 Chronic kidney disease, stage 3 (moderate); M48.061 Spinal stenosis, lumbar region without neurogenic claudication; I25.10 Atherosclerotic heart disease of native coronary artery without angina pectoris; R29.6 Repeated falls; G47.33 Obstructive sleep apnea (adult) (pediatric); Z66 Do not resuscitate; Z95.1 Presence of aortocoronary bypass graft; R73.03 Prediabetes; R41.82 Altered mental status, unspecified; I95.9 Hypotension, unspecified; R53.1 Weakness; G89.4 Chronic pain syndrome; I25.2 Old myocardial infarction; M10.9 Gout, unspecified; G62.89 Other specified polyneuropathies; E78.5 Hyperlipidemia, unspecified; I35.0 Nonrheumatic aortic (valve) stenosis; E87.5 Hyperkalemia; Z79.82 Long term (current) use of aspirin; Z79.52 Long term (current) use of systemic steroids; Z87.891 Personal history of nicotine dependence; Z79.899 Other long term (current) drug therapy; Z88.1 Allergy status to other antibiotic agents; Z88.6 Allergy status to analgesic agent; Z88.8 Allergy status to other drugs, medicaments and biological substances; M51.16 Intervertebral disc disorders with radiculopathy, lumbar region; J44.9 Chronic obstructive pulmonary disease, unspecified

== ENCOUNTER → 2019-06-04 | Outpatient (REF) ==
[~2019-06-04] MED LIST changes: +ASPI-161 PO; +ATOR1TAB21 PO; +LIDO1CRE2 TOP; +MYLASSUD PO; +NORC1TAB8 PO; +PRED20TA PO; +VITMTA PO; +XALA0.007 OU
[2019-06-04 15:44] LABS: HEMATOCRIT 41.4 % (42.0-52.0); HEMOGLOBIN 12.1 g/dl (13.5-17.5); MEAN CORPUSCULAR HEMOGLOBIN 31.6 pg (27.0-33.0); MEAN CORPUSCULAR HGB CONC 29.2 g/dl (32.0-36.5); MEAN CORPUSCULAR VOLUME 108.1 fl (80.0-96.0); PLATELET COUNT, AUTOMATED 223 10^3/uL (150-450); RED BLOOD COUNT 3.83 10^6/uL (4.30-6.10); WHITE BLOOD COUNT 14.2 10^3/uL (4.0-10.0)
--- NOTE | 2019-06-04 16:10 | REPPI ---
Right forearm: Portably obtained. History: Right forearm pain. Findings: Two views of the right forearm demonstrate vascular calcification. There is mild osteoarthritic change at the radial carpal articulation. Mild spurring is seen in the medial epicondyle. No acute bony abnormality. Impression: No acute bony abnormality. Electronically Signed by Ramiro Luther MD 06/04/2019 04:01 P
--- NOTE | 2019-06-04 16:10 | REPPI ---
Portable chest x-ray: Single view. History: Short of breath and cough. Comparison chest x-ray May 25, 2019. Findings: The patient is status post prior median sternotomy. The heart is mildly enlarged unchanged. No infiltrate is seen. Pleural angles are sharp. Pulmonary vasculature is not increased. No significant bony abnormality. Impression: Prior sternotomy. Mild cardiomegaly. Otherwise no acute disease. Electronically Signed by Ramiro Luther MD 06/04/2019 04:02 P
[2019-06-04 16:30] LABS: CALCIUM LEVEL 8.6 MG/DL (8.8-10.2); CREATININE FOR GFR 2.14 MG/DL (0.70-1.30); GLOMERULAR FILTRATION RATE 31.1 (>35); POTASSIUM SERUM 5.4 MEQ/L (3.5-5.1)
== END ==
PROVIDERS: ATTEND Physician Assistant
DX: R06.02 Shortness of breath (principal); I51.7 Cardiomegaly; M79.601 Pain in right arm

== ENCOUNTER → 2019-06-07 | Outpatient (REF) ==
[2019-06-07 09:49] LABS: HEMATOCRIT 36.4 % (42.0-52.0); MEAN CORPUSCULAR HEMOGLOBIN 32.6 pg (27.0-33.0); MEAN CORPUSCULAR HGB CONC 30.2 g/dl (32.0-36.5); PLATELET COUNT, AUTOMATED 196 10^3/uL (150-450); RED BLOOD COUNT 3.37 10^6/uL (4.30-6.10); WHITE BLOOD COUNT 13.8 10^3/uL (4.0-10.0)
[2019-06-07 10:09] LABS: CALCIUM LEVEL 8.6 MG/DL (8.8-10.2); CREATININE FOR GFR 2.17 MG/DL (0.70-1.30); GLOMERULAR FILTRATION RATE 30.6 (>35); POTASSIUM SERUM 5.5 MEQ/L (3.5-5.1)
== END ==
PROVIDERS: ATTEND Family Medicine
DX: I10 Essential (primary) hypertension (principal)

== ENCOUNTER → 2019-06-07 | Outpatient (REF) | PROVIDERS: ATTEND Family Medicine | DX: J18.9 Pneumonia, unspecified organism (principal) ==

== ENCOUNTER → 2019-06-08 | Outpatient (REF) ==
[2019-06-08 13:26] LABS: CALCIUM LEVEL 9.1 MG/DL (8.8-10.2); CREATININE FOR GFR 2.69 MG/DL (0.70-1.30); GLOMERULAR FILTRATION RATE 23.9 (>35); POTASSIUM SERUM 6.1 MEQ/L (3.5-5.1)
== END ==
PROVIDERS: ATTEND Family Medicine
DX: E87.5 Hyperkalemia (principal)